=== PATIENT | male | born 2000 | race Caucasian/White ===

== ENCOUNTER 2024-02-14 13:28 | Emergency (ER) | payer SELFPAY ==
[2024-02-14 13:33] VITALS: BP 146/88; PULSE 87; RESP 16; TEMP 36.4; O2SAT 100
[2024-02-14 13:43] LABS: Glucose Point of Care 398 mg/dl (65-105)
--- NOTE | 2024-02-14 13:48 | ED.GENADULT ---
HPI - General Adult General Chief complaint: Recheck/Abnormal Lab/Rx Stated complaint: low bs Time Seen by Provider: 02/14/24 13:40 History of Present Illness HPI narrative: 23-year-old male insulin-dependent type 1 diabetic presents to the emergency room for evaluation of of dizziness and lightheadedness. Patient states that he has been without his Dexcom palm for over 2 months, and has been self medicating himself with insulin pens. Patient states that he has not been checking his blood sugars so he does not know what his blood sugars are prior to insulin dosing. Patient states he has been without supplies for over 2 months. States he was at work today felt lightheaded, let him to eat chicken and some potato chips. States that he still feels lightheaded following eating. patient is A&O x3 current Related Data Allergies Allergy/AdvReac Type Severity Reaction Status Date / Time No Known Allergies Allergy Mild Verified 02/14/24 13:37 Review of Systems Review of Systems: ROS unremarkable except noted in HPI Exam Narrative: GENERAL: Well-appearing, well-nourished, no physical limitations, and in no acute distress. HEAD: Normocephalic, atraumatic. EYES: Conjunctivae normal, PERRLA and EOMI. CHEST: Clear to auscultation. No respiratory distress. No wheezes rales or rhonchi. HEART: Regular rate and rhythm. No murmur heard. Normal peripheral pulses. ABDOMEN: Soft, nontender, nondistended, normal active bowel sounds. EXTREMITIES: Normal range of motion. No edema. No clubbing or cyanosis SKIN: Warm, dry, no rash. No noted wounds NEURO: No focal deficits. Alert and oriented x3. MAEW. CN's II-XI intact bilaterally, normal gait PSYCH: Cooperative. Normal mood and affect. Course Vital Signs Vital signs: Vital Signs Temperature 36.4 C 02/14/24 13:33 Pulse Rate 87 02/14/24 13:33 Respiratory Rate 16 02/14/24 13:33 Blood Pressure 146/88 H 02/14/24 13:33 Pulse Oximetry 100 02/14/24 13:33 Oxygen Delivery Room Air 02/14/24 13:33 Temperature 36.4 C 02/14/24 13:33 Pulse Rate 87 02/14/24 13:33 Respiratory Rate 16 02/14/24 13:33 Blood Pressure 146/88 H 02/14/24 13:33 Pulse Oximetry 100 02/14/24 13:33 Oxygen Delivery Room Air 02/14/24 13:33 Medical Decision Making Vital Signs Vital Signs: Vital Signs Temperature 36.4 C 02/14/24 13:33 Pulse Rate 87 02/14/24 13:33 Respiratory Rate 16 02/14/24 13:33 Blood Pressure 146/88 H 02/14/24 13:33 Pulse Oximetry 100 02/14/24 13:33 Oxygen Delivery Room Air 02/14/24 13:33 Temperature 36.4 C 02/14/24 13:33 Pulse Rate 87 02/14/24 13:33 Respiratory Rate 16 02/14/24 13:33 Blood Pressure 146/88 H 02/14/24 13:33 Pulse Oximetry 100 02/14/24 13:33 Oxygen Delivery Room Air 02/14/24 13:33 Lab Data 02/14/24 13:59 02/14/24 13:59 Labs: Lab Results 02/14/24 02/14/24 02/14/24 Range/Units 13:32 13:59 15:04 WBC 5.9 (4.5-10.0) K/mm3 RBC 4.75 (4.6-6.20) M/mm3 Hgb 15.1 (14.0-18.0) g/dL Hct 40.9 L (42.0-52.0) % MCV 86.1 (80-100) fl MCH 31.8 (26-34) pg MCHC 36.9 H (32-36) g/dl RDW 11.2 L (11.5-14.5) % Plt Count 207 (150-375) k/mm3 MPV 10.2 (7.4-10.4) fl Immature Gran % (Auto) 0.2 (0-0.5) % Neut % (Auto) 58.3 (45.5-73.1) % Lymph % (Auto) 33.8 (18.3-44.2) % Armstrong % (Auto) 6.2 (2.6-8.5) % Eos % (Auto) 1.0 (0-4.4) % Baso % (Auto) 0.5 (0.2-1.2) % Lymph # (Auto) 2.01 (0.9-3.2) K/mm3 Armstrong # (Auto) 0.4 (0.1-0.6) K/mm3 Eos # (Auto) 0.1 (0-0.3) K/mm3 Baso # (Auto) 0.0 (0.0-0.1) K/mm3 Abs Immat Gran (auto) 0.01 (0.00-0.031) K/mm3 Absolute Neuts (auto) 3.5 (1.3-6.7) K/mm3 Absolute Nucleated RBC 0.000 (0.0-0.012) K/mm3 Nucleated RBC % 0.0 (0.0-0.2) % Sodium 134 L (137-145) mmol/L Potassium 4.0 (3.4-5.0) mmol/L Chloride 96 L (98-107) mmol/L
[2024-02-14] MEDS: SODIUM CHLORIDE 0.9% IV 1,000 ML 999 ML IV CONT ×2 (14:01→15:15)
[2024-02-14 14:14] LABS: Basophils Percent Auto 0.5 % (0.2-1.2); Eosinophils Absolute Auto 0.1 K/mm3 (0-0.3); Hematocrit 40.9 % (42.0-52.0); Hemoglobin 15.1 g/dL (14.0-18.0); Immature Granulocyte Absolute 0.01 K/mm3 (0.00-0.031); Immature Granulocyte Percent A 0.2 % (0-0.5); Lymphocytes Absolute Auto 2.01 K/mm3 (0.9-3.2); Lymphocytes Percent Auto 33.8 % (18.3-44.2); Mean Corpuscular HGB Conc 36.9 g/dl (32-36); Mean Corpuscular Hemoglobin 31.8 pg (26-34); Mean Corpuscular Volume 86.1 fl (80-100); Mean Platelet Volume 10.2 fl (7.4-10.4); Monocytes Absolute Auto 0.4 K/mm3 (0.1-0.6); Monocytes Percent Auto 6.2 % (2.6-8.5); Neutrophils Absolute Auto 3.5 K/mm3 (1.3-6.7); Neutrophils Percent Auto 58.3 % (45.5-73.1); Platelet Count Result 207 k/mm3 (150-375); Red Blood Count 4.75 M/mm3 (4.6-6.20); Red Cell Distribution Width 11.2 % (11.5-14.5); White Blood Count 5.9 K/mm3 (4.5-10.0)
[2024-02-14 14:23] LABS: Alanine Aminotransferase 20 U/L (6-50); Albumin Level 4.8 g/dL (3.5-5.1); Alkaline Phosphatase 126 U/L (38-126); Anion Gap 11 mmol/L (4-12); Aspartate Amino Transferase 25 U/L (17-59); Bilirubin,Total 0.9 mg/dL (0.2-1.3); Blood Urea Nitrogen 14 mg/dL (9-20); Calcium 9.3 mg/dL (8.4-10.2); Carbon Dioxide 27 mmol/L (22-30); Chloride 96 mmol/L (98-107); Estimated Glomerular Filt Rate > 60; Glucose 386 mg/dL (65-110); Magnesium 1.8 mg/dL (1.6-2.3); Phosphorus 3.7 mg/dL (2.5-4.5); Sodium 134 mmol/L (137-145)
[2024-02-14 14:29] LABS: Beta-Hydroxybutyrate/Acetoacetate 2.84 mmol/L (0.02-0.27)
[2024-02-14 15:11] LABS: Hemoglobin A1C 12.7 % (<5.7)
[2024-02-14] MEDS: INSULIN HUMAN REGULAR (*BKC) 100 UNITS/ML SUB-Q (15:15)
[2024-02-14 15:16] LABS: Appearance Urine Clear (Clear); Bacteria Urine None Seen /hpf; Bilirubin Urine Negative (Negative); Blood Urine Negative (Negative); Color Urine Yellow (Yellow); Glucose Urine UA 3+ mg/dL (Negative); Ketones Urine 3+ mg/dL (Negative); Leukocyte Esterase Ur Negative LEU/UL (Negative); Nitrate Urine Negative (Negative); Non Pathogenic Casts 0-2; Protein Urine 1+ mg/dL (Negative); RBC Urine 0-2 /hpf (0-2); Specific Grav Ur > 1.045 (1.001-1.035); Squamous Epithelial Cell Urine None Seen /hpf (Few); Urobilinogen Urine 0.2 mg/dL (<2.0); WBC Urine 0-5 /hpf (0-3); pH Urine 5.5 (5.0-9.0)
[2024-02-14 15:54] LABS: Add Urine Microscopic? YES
[2024-02-14 16:01] LABS: Glucose Point of Care 350 mg/dl (65-105)
--- NOTE | 2024-02-14 16:01 | PCCCNOTE ---
Spoke with pt, pt currently without medical insurance due to moving. Pt given information and phone number for [employer]. They can assist patient with getting either Medicaid or subsidized medical benefits. Pt will need to follow up with number provided. The [facility] Development Packet which contains information regarding various services that the [facility] can provide.
[2024-02-14] MEDS: INSULIN HUMAN REGULAR (*BKC) 100 UNITS/ML IV PUSH (16:23)
[2024-02-14 17:19] LABS: Glucose Point of Care 212 mg/dl (65-105)
[2024-02-14 17:39] VITALS: BP 138/89; PULSE 84; RESP 16; O2SAT 98
== END 2024-02-14 17:42 | disposition home or self-care (01) ==
PROVIDERS: Emergency Provider Nurse Practitioner Family
DX: E10.65 Type 1 diabetes mellitus with hyperglycemia (principal); Z79.4 Long term (current) use of insulin; Z91.148 Patient's other noncompliance with medication regimen for other reason
CPT/HCPCS: 36415; 80053; 81001; 82010; 82948; 83036; 83735; 84100; 85025; 96361; 96374; 99284; J1815; J7030

== ENCOUNTER 2024-06-17 16:20 | Emergency (ER) | payer OTHER, SELFPAY ==
--- NOTE | ~2024-06-17 | CT_ITS ---
EXAMINATION: CT brain wo con DATE: 06/17/2024 16:48 INDICATION: Headache. TECHNIQUE: Computed tomography (CT) of the head was performed without intravenous contrast. The mA wa s adjusted according to patient size. Iterative reconstruction technique was employed. The dose-lengt h product was 681.00 mGy-cm. COMPARISON: None FINDINGS: There is no intracranial hemorrhage, acute infarction, or abnormal intracranial mass lesion . The ventricles are normal in size. There is mild mucosal thickening in the paranasal sinuses. The m astoid air cells are normal. The orbits are normal. IMPRESSION: 1. Normal brain. Reviewed, dictated and finalized at location A. ON STUDY TECHNICIAN IMPRESSION: 1. Normal brain.
[2024-06-17 16:28] VITALS: BP 160/88; PULSE 98; RESP 16; TEMP 36.6; O2SAT 100
--- NOTE | 2024-06-17 16:38 | ED_ITS ---
HPI - Headache General Chief Complaint: Headache <Anali Lo PA-C - Last Filed: 06/18/24 09:41> Stated Complaint: headache x 1 week <Anali Lo PA-C - Last Filed: 06/18/24 09:41> Time Seen by Provider: 06/17/24 16:38 <Anali Lo PA-C - Last Filed: 06/18/24 09:41> Focused HPI: This is a 24 year old male that presents to the ER for headaches. Reports he woke up one morning with a headache. Reports this has been ongoing over the last week. Reports associated nausea and vomiting. Reports some blurry vision. He has not taken anything for his headache today. Denies numbness or weakness. GENERAL: Well-appearing, well-nourished, and in no acute distress. HEAD: Normocephalic, atraumatic. CHEST: Clear to auscultation. ?No respiratory distress. HEART: Regular rate and rhythm.? NEURO: ?Alert and oriented x3. Patient screened in triage and initial orders placed.? ?Additional care and disposition to be based upon?diagnostic testing and treatment. <Anali Lo PA-C - Last Filed: 06/18/24 09:41> History of Present Illness HPI Narrative: 24-year-old male with no past medical history presents emergency department with his father at bedside for headache week. Patient states that it starts in his right anglican wraps around to his left anglican. He describes it as a pulsating a dull ache. He reports associated photophobia, nausea and vomited once today. He is not taking anything for his headache. He denies double vision, loss of vision, focal numbness or weakness, head injury trauma, fever, nuchal rigidity. <Magali Ernandez PA-C - Last Filed: 06/18/24 01:13> Related Data Allergies/Adverse Reactions: Allergies Allergy/AdvReac Type Severity Reaction Status Date / Time No Known Allergies Allergy Mild Verified 06/17/24 18:35 <Anali Lo PA-C - Last Filed: 06/18/24 09:41> Review of Systems Review of Systems: All systems reviewed & are unremarkable except as noted in HPI and below <Magali Ernandez PA-C - Last Filed: 06/18/24 01:13> [facility] Past Medical History Medical History: Medical History (Updated 06/18/24 @ 09:41 by Anali Lo PA-C) History of diabetes mellitus <Anali Lo PA-C - Last Filed: 06/18/24 09:41> Social History Social History: Social History (Updated 06/18/24 @ 09:40 by Anali Lo PA-C) Substance use: never <Anali Lo PA-C - Last Filed: 06/18/24 09:41> Exam Narrative: GENERAL: Well-appearing, well-nourished, and in no acute distress. HEAD: Normocephalic, atraumatic. EYES: PERRLA and EOMI. ENT: Nares clear, no rhinorrhea or epistaxis. Mucous membranes moist. NECK: Supple. No nuchal rigidity CHEST: Clear to auscultation. No respiratory distress. HEART: Regular rate and rhythm. No murmur heard. Normal peripheral pulses. ABDOMEN: Soft, nontender, nondistended, normal active bowel sounds. EXTREMITIES: Normal range of motion. No edema. SKIN: Warm, dry, no rash. NEURO: No focal deficits. Alert and oriented x3. Cranial nerves 2-12 intact. Strength 5/5 in BUE and BLE. Sensation intact throughout. Normal flhxce-yl-uhoc. No pronator drift. <Magali Ernandez PA-C - Last Filed: 06/18/24 01:13> Course Vital Signs Vital signs: Vital Signs Temperature 97.9 F 06/17/24 16:28 Pulse Rate 98 06/17/24 16:28 Respiratory Rate 16 06/17/24 16:28 Blood Pressure 160/88 H 06/17/24 16:28 Pulse Oximetry 100 06/17/24 16:28 Oxygen Delivery Room Air 06/17/24 16:28 Temperature 97.9 F 06/17/24 16:28 Pulse Rate 98 06/17/24 16:28 Respiratory Rate 16 06/17/24 16:28 Blood Pressure 160/88 H 06/17/24 16:28 Pulse Oximetry 100 06/17/24 16:28 Oxygen Delivery Room Air 06/17/24 16:28 <HAL Calderon Last Filed: 06/18/24 09:41> Vital Signs Temperature 97.9 F 06/17/24 16:28 Pulse Rate 98 06/17/24 16:28 Respiratory Rate 16 06/17/24 16:28 Blood Pressure 160/88 H 06/17/24 16:28 Pulse Oximetry 100 06/17/24 16:28 Oxygen Delivery Room Air 06/17/24 16:28 Temperature 97.9 F 06/17/24 16:28 Pulse Rate 98 06/17/24 16:28 Respiratory Rate 16 06/17/24 16:28 Blood Pressure 160/88 H 06/17/24 16:28 Pulse Oximetry 100 06/17/24 16:28 Oxygen Delivery Room Air 06/17/24 16:28 <Magali Ernandez PA-C - Last Filed: 06/18/24 01:13> MDM - Headache MDM Narrative Medical decision making narrative: 24-year-old male presents emergency department with father at bedside for headache for 1 week. Vitals with blood pressure 160/88. He is afebrile nontoxic appearing. He is neurovascularly intact without focal deficits. No evidence of meningismus. CT brain obtained in triage shows no acute intracranial findings. Patient received a headache cocktail and IV fluids. When I went to go reevaluate the patient, he was not in the exam room. Per nursing staff the patient had eloped out of the department after asking to go to the bathroom. Security was able to find the patient in the parking lot and patient's IV was removed. He was seen ambulating with a steady gait. <Magali Ernandez PA-C - Last Filed: 06/18/24 01:13> Critical Care Time Critical Care Time Critical Care Time: No <HAL Calderon Last Filed: 06/18/24 09:41> Discharge Plan Discharge Clinical Impression: Headache <HAL Calderon Last Filed: 06/18/24 09:41> Patient Disposition: Elopement After Seen by Prov <HAL Calderon Last Filed: 06/18/24 09:41> Condition: Stable <HAL Calderon Filed: 06/18/24 09:41> Follow-up/Referrals: UNKNOWN,DOCTOR [Primary Care Provider] - <Anali Lo PA-C - Last Filed: 06/18/24 09:41>
[2024-06-17] MEDS: ACETAMINOPHEN 500 MG TABLET 1000 MG PO (16:57)
[2024-06-17] MEDS: SODIUM CHLORIDE 0.9% IV 1,000 ML 999 ML IV CONT (18:36)
[2024-06-17] MEDS: diphenhydrAMINE HCl INJ 50 MG/ML VIAL 25 MG IV PUSH (18:36)
[2024-06-17] MEDS: KETOROLAC 15 MG/ML VIAL (*BKC) IV PUSH (18:37)
[2024-06-17] MEDS: PROCHLORPERAZINE EDISYLATE 10 MG/2 ML VIAL IV PUSH (18:37)
--- NOTE | 2024-06-17 19:03 | PC.NURSE ---
This RN assisted patient to the restroom. While patient was going to the bathroom, patient ran out the door into the parking lot. PAtients IV remained in. Security ran after patient and brought him back to [facility] to remove IV. Patient eloped and provider notified.
== END 2024-06-17 19:08 | disposition left against medical advice (07) ==
PROVIDERS: Emergency Provider Physician Assistant
DX: R51.9 Headache, unspecified (principal); E11.9 Type 2 diabetes mellitus without complications
CPT/HCPCS: 70450; 96361; 96374; 96375; 99284; A9270; J0780; J1200; J1885; J7030

== ENCOUNTER 2024-09-19 18:46 | Emergency (ER) | payer OTHER, SELFPAY ==
--- OUTSIDE RECORDS SUMMARY | 2024-09-19 18:50 | XMS_ITS | Continuity of Care Document ---
Author Organization [facility] Address [address] [place] [address] [place] [address] Phone Care Team Providers Care Vacuum Cleaner Mechanic Name Role Phone Warner Acevedo MD Unavailable Unavailable Allergies, Adverse Reactions, Alerts Substance Reaction Status Criticality POTASSIUM CLAVULANATE Skin irritationHives / Skin Rash Active No Information AMOXICILLIN TRIHYDRATE Skin irritation Active No Information Medications Medication Instructions Dosage Effective Dates (start - stop) Status Comments Humalog KwikPen (U-100) Insulin 100 unit/mL subcutaneous inject by subcutaneous route per prescriber's instructions. Insulin dosing requires individualization. 0.00 - Active take 10 units TID before meal and per sliding scale, max 50 units/24 hours Lantus Solostar U-100 Insulin 100 unit/mL (3 mL) subcutaneous pen inject by subcutaneous route as per insulin protocol 0.00 - Active 60 units SC daily Procedures Procedure Date PREV VISIT, EST, AGE 18-39 OFFICE/OUTPATIENT VISIT, [facility] Advance Directives Directive Yes / No Effective Date File Name No Information Encounters Encounter Description Practice Location Reason(s) For Visit Diagnoses Date Provider Providers Copied on Encounter PREV VISIT, EST, AGE 18-39 [facility], [address] [place], [id number], [place] tel:[phone] [facility] Medicine physical (chief complaint) Encounter for general adult medical examination without abnormal findings Curtis Hylton. [email or web address], [id number] , [place]. tel:[phone] [facility], [address] [place], [id number], [place] tel:[phone] [facility] No Information Curtis Hylton. [address], [place], [place], [id number] , [place]. tel:[phone] OFFICE/OUTPAT IENT VISIT, [facility], [place], [address], [place], [place], [id number], tel:[phone] [facility] DM (chief complaint) Type I DM without complication Curtis Hylton. [address], [place], [place], [id number] , [place]. tel:[phone] Family History Family Member Type Diagnosis Age At Onset Mother Problem personality disorder Brother Problem Alive and well Father Problem drug dependency Payers Payer name Insurance type Covered republican ID Authoriza tion(s) No Information Social History Type Description Quantity Date Captured Comments Alcohol Use Details No Caffeine Use Details Unknown Tobacco Use Status Smoker Smoking Status Current some day smoker 024 Sex Male Vital Signs Date / Time: Height Weight BMI Pulse Rate Blood Pressure Temperature Respiratory Rate Body Surface Area Head Circumference BMI percentile Pulse Ox Inhaled Ox 3:01 PM 72.00 in 213.40 lbs 28.9 4 kg/m eter (2) 88 /min 130/88 mm[Hg] 98.0 F 16 /min Chief Complaint And Reason For Visit From encounter dated '06/23/2024 14:54'. physical (chief complaint). Description: Pt needs annual physical Pt has type I DM Pt has insulin pump but he has ot been using the pump since he does not have endo. he uses lantus and humalog. His glucose is around 150-200 on average Pt also has history of HTN. he was on bp med but the previous PCP stopped BP med one year ago for unknown reason he notices that his bp has been high recently around 160/90. He also notices some headache as well. he denies any neuropathy or chest pain. Pt has devin with endo November of 2024. Pt denies any vision change Plan Of Treatment Date Type Action Status Referral Ordered: Endocrinology, Diabetes and Metabolism (related to Encounter for general adult medical examination without abnormal findings) ordered Referral Ordered: Referrals: Endocrinology, Diabetes and Metabolism. Evaluate and treat ordered Referral Ordered: Rob Villanueva -[facility] : Internal Medicine (related to Type I DM without complication) ordered Referral Referred To: Rob Villanueva [address], [phone] Ordered: Referrals: [facility] : Internal Medicine. Rob Villanueva. Evaluate and treat ordered History Of Present Illness Encounter Date Complaint History Of Prese nt Illness physical Pt needs annual physical Pt has type I DM Pt has insulin pump but he has ot been using the pump since he does not have endo. he uses lantus and humalog. His glucose is around 150-200 on average Pt also has history of HTN. he was on bp med but the previous PCP stopped BP med one year ago for unknown reason he notices that his bp has been high recently around 160/90. He also notices some headache as well. he denies any neuropathy or chest pain. Pt has devin with endo November of 2024. Pt denies any vision change DM Pt has type I DM . Pt just moved back from [place] last month and he was seeing specialist back in [place] but he is about to run out of insulin. He uses humalog 10 units before meal and also sliding scale and lantus 60 units nightly. His glucose is around 200 and his A1c is around 12. pt does have insulin pump and he needs to see endo to reactivate the pump. Pt denies any other complaints. He denies any neuropathy Instructions Date Instruction Additional Infor mation No Information Assessments Type Assessment Date assessment Encounter for genera l adult medical examination without abnormal findings Mental Status Date Cognitive Assessment Orientation - Hooper ed to time, place, person, situation.
--- OUTSIDE RECORDS SUMMARY | 2024-09-19 18:50 | XMS_ITS | Referral Summary ---
Author Organization [facility] Address [address] [place] [address] [place] [address] Care Team Providers Care Hatchery Helper Name Role Phone Unavailable Primary Care Provider Unavailabl e Source Comments [facility],non-owned Affiliates and Associated Physician Practices is amultiple site organization consisting of ambulatory clinics and hospital sitesin [place], [place], [place] and [place]. This disclosure is being madepursuant to the Care Everywhere program and may not contain all information available regarding this patient. Last updated 18.[facility] Allergies Active Allergy Reactions Criticality Noted Date Comments Penicillins Itching 03/10/2021 Medications * Be aware that medications may not be up to date on this document. Alwaysverify current medications with the patient. Medication Sig Dispensed Refills Start Date End Date Status Insulin Syringes, Disposable, U-100 0.5 ML MISC Use 1 Each as needed 100 Each 06/24/2019 Active Continuous Blood Gluc Turning Machine Operator Helper (DEXCOM G6 CHAIR LIFT OPERATOR) WARREN Use 1 Each once daily 1 device 08/19/2019 Active Additional Information Patient not taking.Reported on 03/10/2021 insulin pen needle (BD UF III) 31G X 8 MM needle 1 Each 4 times daily 200 Each 2 05/26/2020 Active glucagon (GLUCAGON EMERGENCY) injection Inject 1 mg into muscle as needed 1 kit 05/26/2020 Active Continuous Blood Gluc Transmit (DEXCOM G6 TRANSMITTER) MISCIndications:Unc ontrolled type 1 diabetes mellitus with hyperglycemia (HCC) Use 1 Each Every 90 days 1 Each 4 11/16/2020 Active Additional Information Patient not taking.Reported on 03/10/2021 Continuous Blood Gluc Sensor (DEXCOM G6 SENSOR) MISC Inject 1 Each subcutaneously every 10 days 9 Each 4 11/16/2020 Active Additional Information Patient not taking.Reported on 03/10/2021 Glucagon, rDNA, (GLUCAGON EMERGENCY) 1 MG KIT 1 Each by Injection route as needed 2 kit 11/16/2020 Active insulin glargine (LANTUS) pen Inject 22 (twenty two) Units subcutaneously at bedtime 5 Pen 4 03/10/2021 Active Acetone, Urine, Test (KETONE TEST) STRP Use 1 Each as instructed as needed 25 strip 2 03/10/2021 Active insulin lispro (HUMALOG) 100 UNIT/ML vialIndications:Unc ontrolled type 1 diabetes mellitus with hyperglycemia (HCC) TAKE 60 UNITS PER DAY PER PUMP 20 mL 09/01/2021 Active Active Problems Problem Noted Date Diagnosed Date Uncontrolled type 1 diabetes mellitus with hyper glycemia 06/24/2019 Immunizations Name Administration Dates Next Due DTaP VACCINE IM (6wk-6yrs) 03/27/2007,,01/06/2002,10/21,2001 HEP A PEDS 2 DOSE 08/25/2013,02/21/2013 HIB Hep B 02/23/2003,2001,2001 Human Papilloma Virus Meseret valent Vaccine 08/25/2013,04/25/2013,02/21/2013 INFLUENZA VACCINE 06/09/2019,06/20/2004 INFLUENZA VACCINE, QUADR. (F LUZONE; FLULAVAL; FLUARIX; AFLURIA QUADRIVALENT; 6MO+), 0.5 ML (IIV4) 05/21/2018,05/31/2017,05/26/2016 TAMERA VACCINE QUAD LAIV4 PF NASAL 05/28/2015 MENINGOCOCCAL CONJUGATE (MCV4P) 05/31/2017 MENINGOCOCCAL MCV4O 02/21/2013 MMR 03/27/2007,05/26/2002 PNEUMOCOCCAL PCV7 CONJ, PEDS 01/06/2002,10/22/19 02 POLIO IPV 03/27/2007, 2,2001,07/26 TDAP (7yrs+) 02/21/2013 VARICELLA 03/27/2007,05/26/2002 iNFLUENZA VACCINE, RECOM-ROSENBERG, QUADR. (FLUBLOCK QUADRIVALENT; 18Y+) (RIV4) 05/26/2020 Social History Tobacco Use Types Packs/Day Years Used Date Smoking Tobacco: Never Smokeless Tobacco: Current Chew Alcohol Use Standard Drinks/Week Comments Yes 0 (1 standard drink = 0.6 oz pur e alcohol) Sex and Gender Information Value Date Recorded Sex Assigned at Not on file Gender Identity Not on file Sexual Orientation Not on file Last Filed Vital Signs Vital Sign Reading Time Taken Comments Blood Pressure 140/70 03/10/2021 3:05 PM CDT Pulse 87 03/10/2021 3:05 PM CDT Temperature 35.9 C (96.7 F) 03/10/2021 3:05 PM CDT Respiratory Rate - - Oxygen Saturation 99% 03/10/2021 3:05 PM CDT Inhaled Oxygen Concentration - - Weight 86.2 kg (190 lb) 03/10/2021 3:05 PM CDT Height 188 cm (6' 2 ) 03/10/2021 3:05 PM CDT Body Mass Index 24.39 03/10/2021 3:05 PM CDT Plan of Treatment Not on file Procedures Procedure Name Priority Date/Time Associated Diagnosis Comments HEMOGLOBIN A1C - POINT OF CARE (AMB) [facility] Routine 03/10/2021 3:12 PM CDT Uncontrolled type 1 diabetes mellitus with hyperglycemia (HCC) from Last 3 Months or Most Recently Relevant to Health Maintenance Results * HEMOGLOBIN A1C - POINT OF CARE (AMB) [facility] (03/10/2021 3:12 PM CDT) Hemoglobin A1c POCT 13.5% % BLOOD SPECIMEN / Unknown 03/10/2021 3:12 PM CDT Jackeline Vitale [facility] - POINT O F CARE ORDERABLES from Last 3 Months or Most Recently Relevant to Health Maintenance
--- OUTSIDE RECORDS SUMMARY | 2024-09-19 18:50 | XMS_ITS | Continuity of Care Document ---
Author Organization [facility] Address [address] [place] [address] Phone Care Team Providers Care Field Court Researcher Name Role Phone Jignesh PT, GLENDAT, [place] Unavailable Unavailable Procedures Procedure Date PT Evaluation Moderate Complexity Therapeutic Activities Neuromuscular Re-Ed Therapeutic Exercise Advance Directives Directive Yes / No Effective Date File Name No Information Encounters Encounter Description Practice Location Reason(s) For Visit Diagnoses Date Provider Providers Copied on Encounter [facility], [address], [place], [place], [id number], tel:[phone] [place] No Information 4 Jignesh Ledezma. . [facility], [address], [place], [place], [address], [place] tel:[phone] [place] No Information 4 Spencer Peres. . Referring Provider: Access Direct. Family History Family Member Type Diagnosis Age At Onset No Information Payers Payer name Insurance type Covered green party ID Authoriza tijose maria(s) [employer] [place] 00 Social History Type Description Quantity Date Captured Comments Sex Male Smoking Status No Information Chief Complaint And Reason For Visit No Information Reason For Referral Reason For Referral No Information History Of Present Illness Encounter Date Complaint History Of Prese nt Illness No Information Functional Status Date Functional Assessmen t No Information Instructions Date Instruction Additional Infor mation No Information Assessments Type Assessment Date No Information Patient Care Teams Name Effective Dates (start - stop) Status Members No Information
--- OUTSIDE RECORDS SUMMARY | 2024-09-19 18:50 | XMS_ITS | Clinical Summary ---
Author Organization [facility] Address [address] [place] [address] [place] [address] Care Team Providers Care Kettle Skimmer Name Role Phone Unavailable Primary Care Provider Unavailabl e Source Comments [facility],non-owned Affiliates and Associated Physician Practices is amultiple site organization consisting of ambulatory clinics and hospital sitesin [place], [place], [place] and [place]. This disclosure is being madepursuant to the Care Everywhere program and may not contain all information available regarding this patient. Last updated 18.[employer] [facility] Allergies Active Allergy Reactions Criticality Noted Date Comments Penicillins Itching 03/10/2021 Medications * Be aware that medications may not be up to date on this document. Alwaysverify current medications with the patient. Medication Sig Dispensed Refills Start Date End Date Status Insulin Syringes, Disposable, U-100 0.5 ML MISC Use 1 Each as needed 100 Each 06/24/2019 Active Continuous Blood Gluc Vehicle And Equipment Cleaner (DEXCOM G6 TRUCK CRANE OPERATOR) WARREN Use 1 Each once daily [...] RECOM-ROSENBERG, QUADR. (FLUBLOCK QUADRIVALENT; 18Y+) (RIV4) 05/26/2020 Family History Medical History Relation Name Comments Seizures Mother Seizures Sister Relation Name Status Comments Brother Alive Father Alive Mother Alive Sister Alive Social History Tobacco Use Types Packs/Day Years [...] 03/10/2021 3:05 PM CDT Plan of Treatment Health Maintenance Due Date Last Done Comments PNEUMOCOCCAL VACCINE (1 of 1 - PPSV23) 2007 01/06/2002, 2001 HIV SCREENING 2016 MENINGOCOCCAL (Group B) VACC INE (1 of 2 - Standard) 2017 HEPATITIS C SCREENING 05/12/2019 DIABETES-SERUM CREATININE 2019 DIABETES RETINOPATHY SCREENING 06/24/2019 DIABETES-FOOT EXAM WITH MONOFILAMENT 05/26/2021 05/26/2020, 06/24/2019 DIABETES-HGB A1C 09/10/2021 03/10/2021, , 08/25/2020, Additional history exists DTAP/TDAP/TD VACCINES (7 - T d or Tdap) 02/21/2023 02/21/2013, 03/27/2007, 02/23/2003, Additional history exists COVID-19 VACCINE (2023-2 5 season) 2024 INFLUENZA VACCINE (#1) 2024 0, 06/09/2019, 05/21/2018, Additional history exists DEPRESSION SCREENING 08/06/2024 DIABETES - URINE PROTEIN SCREENING 08/06/2024 ZOSTER VACCINE (1 of 2) 2051 HEPATITIS B VACCINE Completed 02/23/2003, 2001, 2001 HIB VACCINE Completed 02/23/2003, 10/04, 2001 HPV VACCINE Completed 08/25/2013, 04/07, 02/21/2013 MENINGOCOCCAL VACCINE Completed 05/31/2017, 013 Procedures Procedure Name Priority Date/Time Associated Diagnosis [...] Unknown 03/10/2021 3:12 PM CDT Jackeline Vitale EXPENSE CLERK-CHILD WELFARE CONSULTANT LAB - POINT O F CARE ORDERABLES from Last 3 Months or Most Recently Relevant to Health Maintenance
--- OUTSIDE RECORDS SUMMARY | 2024-09-19 18:50 | XMS_ITS | Patient Health Summary ---
Author Organization [facility] [employer] Address [address] [place] [address] Care Team Providers Care Power Electronics Research Engineer Name Role Phone Unavailable Primary Care Provider Unavailabl e Note from [facility],non-owned Affiliates and Associated Physician Practices is amultiple site organization consisting of ambulatory clinics and hospital sitesin [place], [place], [place] and [place]. This disclosure is being madepursuant to the Care Everywhere program and may not contain all information available regarding this patient. Last updated 18.[facility] [employer] Allergies * Penicillins(Itching) Medications * Be aware that medications may not be up to date on this document. Alwaysverify current medications with the patient. * Insulin Syringes, Disposable, U-100 0.5 ML MISC(Started 06/24/2019) Use 1 Each as needed * Continuous Blood Gluc Security Compliance Specialist (DEXCOM G6 ORACLE TECHNICAL DEVELOPER) WARREN(Started 08/19/2019) Use 1 Each once daily * insulin pen needle (BD UF III) 31G X 8 MM needle(Started 05/26/2020) 1 Each 4 times daily 2 refills by 05/26/2021 * glucagon (GLUCAGON EMERGENCY) injection(Started 05/26/2020) Inject 1 mg into muscle as needed * Continuous Blood Gluc Transmit (DEXCOM G6 TRANSMITTER) MISC(Started 11/16/2020) Use 1 Each Every 90 days 4 refills by 11/16/2021 * Continuous Blood Gluc Sensor (DEXCOM G6 SENSOR) MISC(Started 11/16/2020) Inject 1 Each subcutaneously every 10 days 4 refills by 11/16/2021 * Glucagon, rDNA, (GLUCAGON EMERGENCY) 1 MG KIT(Started 11/16/2020) 1 Each by Injection route as needed * insulin glargine (LANTUS) pen(Started 03/10/2021) Inject 22 (twenty two) Units subcutaneously at bedtime 4 refills by 03/10/2022 * Acetone, Urine, Test (KETONE TEST) STRP(Started 03/10/2021) Use 1 Each as instructed as needed 2 refills by 03/10/2022 * insulin lispro (HUMALOG) 100 UNIT/ML vial(Started 09/01/2021) TAKE 60 UNITS PER DAY PER PUMP Active Problems Problem Noted Date Diagnosed Date Uncontrolled type 1 diabetes mellitus with hyper glycemia 06/24/2019 Immunizations * DTaP VACCINE IM (6wk-6yrs)(Given 03/27/2007, 02/23/2003, 01/06/2002, 2001, 2001) * HEP A PEDS 2 DOSE(Given 08/25/2013, 02/21/2013) * HIB Hep B(Given 02/23/2003, 2001, 2001) * Human Papilloma Virus Quadrivalent Vaccine(Given 08/25/2013, 04/25/2013, 02/21/2013) * INFLUENZA VACCINE(Given 06/09/2019, 06/20/2004) * INFLUENZA VACCINE, QUADR. (FLUZONE; FLULAVAL; FLUARIX; AFLURIA QUADRIVALENT; 6MO+), 0.5 ML (IIV4)(Given 05/21/2018, 05/31/2017, 05/26/2016) * TAMERA VACCINE QUAD LAIV4 PF NASAL(Given 05/28/2015) * MENINGOCOCCAL CONJUGATE (MCV4P)(Given 05/31/2017) * MENINGOCOCCAL MCV4O(Given 02/21/2013) * MMR(Given 03/27/2007, 05/26/2002) * PNEUMOCOCCAL PCV7 CONJ, PEDS(Given 01/06/2002, 2001) * POLIO IPV(Given 03/27/2007, 05/26/2002, 2001, 2001) * TDAP (7yrs+)(Given 02/21/2013) * VARICELLA(Given 03/27/2007, 05/26/2002) * iNFLUENZA VACCINE, RECOM-ROSENBERG, QUADR. (FLUBLOCK QUADRIVALENT; Y+) (RIV4)(Given 05/26/2020) Social History Tobacco Use Types Packs/Day Years [...] Mass Index 24.39 03/10/2021 3:05 PM CDT Procedures * HEMOGLOBIN A1C - POINT OF CARE (AMB) [facility](Performed 03/10/2021) Performed for Uncontrolled type 1 diabetes mellitus with hyperglycemia (HCC) * HEMOGLOBIN A1C - POINT OF CARE (AMB) [facility](Performed 11/16/2020) Performed for Uncontrolled type 1 diabetes mellitus with hyperglycemia (HCC) * [place] GLUC MONITOR, CONT, PHYS I&R(Performed 08/25/2020) Performed for Uncontrolled type 1 diabetes mellitus with hyperglycemia (HCC) * HEMOGLOBIN A1C - POINT OF CARE (AMB) [facility](Performed 08/25/2020) Performed for Uncontrolled type 1 diabetes mellitus with hyperglycemia (HCC) * HEMOGLOBIN A1C - POINT OF CARE (AMB) [facility](Performed 05/26/2020) Performed for Uncontrolled type 1 diabetes mellitus with hyperglycemia (HCC) * HEMOGLOBIN A1C - POINT OF CARE (AMB) [facility](Performed 06/24/2019) Performed for Screening for diabetes mellitus (DM) Results * HEMOGLOBIN A1C - POINT OF CARE (AMB) [facility] (03/10/2021 3:12 PM CDT) Only the most recent of5 resultswithin the time period is included. Hemoglobin A1c POCT 13.5% % BLOOD SPECIMEN / Unknown 03/10/2021 3:12 PM CDT Jackeline GARCIA LAB - POINT O F CARE ORDERABLES * OH GLUC MONITOR, CONT, PHYS I&R (08/25/2020 8:38 AM CLOTH WASHER) Narrative Jackeline Vitale APRN-CNP - 08/25/2020 8:38 AM CLOTH WASHER Jackeline Vitale APRN-CNP 08/25/2020 8:47 AM Dexcom cgm G6 downloaded in office. Report reviewed with patient. See progress notes for settings/results noted/recommendations. ( Download will be scan into media. ) Jackeline GARCIA PROCEDURE/MIN OR SURGICAL ORDERABLES
[2024-09-19 18:52] VITALS: BP 147/115; PULSE 101; RESP 20; TEMP 36.7; O2SAT 96
--- NOTE | 2024-09-19 18:59 | ED.NAVMDI ---
HPI - Nausea/Vomiting/Diarrhea General Chief complaint: Nausea/Vomiting/Diarrhea Stated complaint: N/V Time Seen by Provider: 09/19/24 18:49 Source: patient Mode of arrival: EMS Limitations: no limitations History of Present Illness HPI Narrative: 24 years old white male with history of type 1 diabetes came to the ED by ambulance from home complaining of nausea and vomiting body aches, coughing for the last 4 days. Patient is telling me that he been vomiting once every 2 hours. Currently patient feeling very thirsty . Questionable fever at home. Patient did not take any of his home medicine for the last 4 days because of the vomiting Related Data Home Medications ?Medication ?Instructions ?Recorded ?Confirmed ?Last Taken ?Type insulin glargine 100 unit/mL (3 60 unit subcut QPM 09/19/24 Unknown History mL) subcutaneous pen (Lantus Solostar U-100 Insulin) insulin lispro 100 unit/mL 10 unit subcut ACINSULIN 09/19/24 Unknown History subcutaneous pen Allergies Allergy/AdvReac Type Severity Reaction Status Date / Time No Known Allergies Allergy Mild Verified 09/19/24 19:09 Review of Systems Review of Systems: All systems reviewed & are unremarkable except as noted in HPI and below PMFSH Past Medical History Medical History History of diabetes mellitus Social History Social History Substance use: never Exam Narrative: General appearance: Well-developed, well-nourished Skin: Normal color Head: Normocephalic, nontraumatic Eyes: Clear conjunctiva ENT: Oropharynx normal, ears normal, nose normal Neck: Supple, nontender Chest and respiratory: Airway patent, no respiratory distress, no accessory muscle use Heart: Regular rate/rhythm Abdomen: Soft, nontender, no organomegaly, quiet bowel sounds Vascular: Normal peripheral pulses, normal capillary refill. Musculoskeletal: Normal range of motion, nontender back Neurologic: Alert and oriented ?3, HOSPICE EDUCATOR is normal as tested, no gross motor deficit Course Consultations Consultation #1: DR WILDER Date: 09/19/24 Time: 20:46 Vital Signs Vital signs: Vital Signs Temperature 36.7 C 09/19/24 18:52 Pulse Rate 101 H 09/19/24 18:52 Respiratory Rate 20 09/19/24 18:52 Blood Pressure 147/115 H 09/19/24 18:52 Pulse Oximetry 96 09/19/24 18:52 Oxygen Delivery Room Air 09/19/24 18:52 Temperature 36.7 C 09/19/24 18:52 Pulse Rate 101 H 09/19/24 18:52 Respiratory Rate 20 09/19/24 18:52 Blood Pressure 147/115 H 09/19/24 18:52 Pulse Oximetry 96 09/19/24 18:52 Oxygen Delivery Room Air 09/19/24 18:52 MDM - Nausea/Vomiting/Diarrhea MDM Narrative Medical decision making narrative: patient presents with vomiting for the last 4 days history of type 1 diabetes Vital signs showing blood pressure 147/115, heart rate 101 otherwise within normal limit Physical examination showing severely ill patient, with dry heaves and diaphoretic Differential diagnosis include DKA, upper respiratory viral infection, gastroenteritis, electrolyte imbalance, dehydration Blood workup today includes CBC, CMP, phosphorus, magnesium, beta hydroxybutyrate showed sodium 133, carbon dioxide 10, anion gap 28, creatinine 1.3, blood glucose 391, magnesium 1.5, Urinalysis showed Respiratory panel showed positive for influenza A Venous blood gas showed pH of 7.16 Diagnosis DKA type 1 diabetes Influenza a Transferred to [facility] discussed with Dr. Wilder Differential Diagnosis Differential diagnosis: Likely gastroenteritis, dehydration and other ( DKA, electrolyte imbalance, respiratory viral infection) Medical Records Attestation: I reviewed the patient's medical records. Lab Data Attestation: I reviewed the patient's lab results. 09/19/24 19:03 09/19/24 19:03 Labs: Lab Results 09/19/24 09/19/24 09/19/24 Range/Units 19:03 19:13 20:30 WBC 5.5 (4.8-10.8) K/mm3 RBC 5.78 (4.70-6.10) M/mm3 Hgb 17.3 (14.0-18.0) g/dL Hct 50.5 (40.0-54.0) % MCV 87.4 (78.0-102.0) fL MCH 29.9 (27.0-31.0) pg MCHC 34.3 (32-36) g/dL RDW 11.5 L (11.6-14.4) % Plt Count 209 (150-420) K/mm3 MPV 10.0 (8.7-11.0) fl Immature Gran % (Auto) 0.2 H (0.0-0.0) % Neut % (Auto) 75.4 H (50.0-70.0) % Lymph % (Auto) 15.3 L (18.0-42.0) % Gladwin % (Auto) 8.7 (2.0-11.0) % Eos % (Auto) 0.2 L (1.0-6.0) % Baso % (Auto) 0.2 (0.0-1.0) % Lymph # (Auto) 0.85 L (1.10-4.50) K/mm3 Gladwin # (Auto) 0.48 (0.10-0.90) K/mm3 Eos # (Auto) 0.01 L (0.02-0.50) K/mm3 Baso # (Auto) 0.01 (0.00-0.10) K/mm3 Abs Immat Gran (auto) 0.01 H (0.00-0.00) K/mm3 Absolute Neuts (auto) 4.18 (1.70-7.20) K/mm3 Absolute Nucleated RBC 0.00 (0.00-0.00) K/mm3 Nucleated RBC % 0.0 (0-0.0) % Sodium 133 L (136-145) mmol/L Potassium 4.3 (3.5-5.1) mmol/L Chloride 95 L (98-108) mmol/L Carbon Dioxide 10 L (21-32) mmol/L Anion Gap 28 H (4-12) mmol/L BUN 14 (7-18) mg/dL Creatinine 1.38 H (0.70-1.30) mg/dL Estim Creat Clear Calc 84 ml/min Estimated GFR > 60 (59 - ) Glucose 391 H (70-99) mg/dL POC Capillary Glucose 392 H (65-105) mg/dl Calculated Osmolality 292 (285-295) mOsm/kg Calcium 8.8 (8.5-10.1) mg/dL Phosphorus 3.9 (2.6-4.7) mg/dL Magnesium 1.5 L (1.8-2.4) mg/dL Total Bilirubin 0.4 (0.00-1.00) mg/dL AST 17 (15-37) U/L ALT 28 (16-63) U/L Alkaline Phosphatase 121 H (46-116) U/L Total Protein 8.0 (6.4-8.2) g/dL Albumin 3.8 (3.4-5.0) g/dL Urine Color Light yellow (Yellow) Urine Appearance Clear (Clear) Urine pH 5.5 (5.0-8.0) Ur Specific Hercules >= 1.030 H (1.010-1.020) Urine Protein 3+ H (Negative) Urine Glucose (UA) 2+ H (Negative) Urine Ketones 3+ H (Negative) Ur Blood (Man) Trace-intact H (Negative) Urine Nitrate Negative (Negative) Urine Bilirubin 1+ H (Negative) Urine Urobilinogen 0.2 (0.2-1.0) mg/dL Leukocyte Esterase Rfl Negative (Negative) DAVID/UL Urine RBC 0-2 (0-2) /hpf Urine WBC 0-3 (0-3) /hpf Ur Squamous Epith Cells Rare (Few) /hpf Urine Bacteria Trace (None) /hpf Influenza A (RT-PCR) Positive A (Negative) Influenza B (RT-PCR) Negative (Negative) RSV (RT-PCR) Negative (Negative) SARS-CoV-2 RNA (RT-PCR) Negative (Negative) 09/19/24 09/19/24 Range/Units 21:01 21:56 WBC (4.8-10.8) K/mm3 RBC (4.70-6.10) M/mm3 Hgb (14.0-18.0) g/dL Hct (40.0-54.0) % MCV (78.0-102.0) fL MCH (27.0-31.0) pg MCHC (32-36) g/dL RDW (11.6-14.4) % Plt Count (150-420) K/mm3 MPV (8.7-11.0) fl Immature Gran % (Auto) (0.0-0.0) % Neut % (Auto) (50.0-70.0) % Lymph % (Auto) (18.0-42.0) % Gladwin % (Auto) (2.0-11.0) % Eos % (Auto) (1.0-6.0) % Baso % (Auto) (0.0-1.0) % Lymph # (Auto) (1.10-4.50) K/mm3 Gladwin # (Auto) (0.10-0.90) K/mm3 Eos # (Auto) (0.02-0.50) K/mm3 Baso # (Auto) (0.00-0.10) K/mm3 Abs Immat Gran (auto) (0.00-0.00) K/mm3 Absolute Neuts (auto) (1.70-7.20) K/mm3 Absolute Nucleated RBC (0.00-0.00) K/mm3 Nucleated RBC % (0-0.0) % Sodium (136-145) mmol/L Potassium (3.5-5.1) mmol/L Chloride (98-108) mmol/L Carbon Dioxide (21-32) mmol/L Anion Gap (4-12) mmol/L BUN (7-18) mg/dL Creatinine (0.70-1.30) mg/dL Estim Creat Clear Calc ml/min Estimated GFR (59 - ) Glucose (70-99) mg/dL POC Capillary Glucose 289 H 234 H (65-105) mg/dl Calculated Osmolality (285-295) mOsm/kg Calcium (8.5-10.1) mg/dL Phosphorus (2.6-4.7) mg/dL Magnesium (1.8-2.4) mg/dL Total Bilirubin (0.00-1.00) mg/dL AST (15-37) U/L ALT (16-63) U/L Alkaline Phosphatase (46-116) U/L Total Protein (6.4-8.2) g/dL Albumin (3.4-5.0) g/dL Urine Color (Yellow) Urine Appearance (Clear) Urine pH (5.0-8.0) Ur Specific Hercules (1.010-1.020) Urine Protein (Negative) Urine Glucose (UA) (Negative) Urine Ketones (Negative) Ur Blood (Man) (Negative) Urine Nitrate (Negative) Urine Bilirubin (Negative) Urine Urobilinogen (0.2-1.0) mg/dL Leukocyte Esterase Rfl (Negative) DAVID/UL Urine RBC (0-2) /hpf Urine WBC (0-3) /hpf Ur Squamous Epith Cells (Few) /hpf Urine Bacteria (None) /hpf Influenza A (RT-PCR) (Negative) Influenza B (RT-PCR) (Negative) RSV (RT-PCR) (Negative) SARS-CoV-2 RNA (RT-PCR) (Negative) ABG Data ABG results: 09/19/24 19:03 VBG pH 7.16 L VBG pCO2 21.4 L* VBG pO2 63.2 H VBG HCO3 7.4 L O2 Delivery Device Room air O2 Liters/Min 0.0 Critical Care Time Critical Care Time Critical Care Time: Yes Total Critical Care Time: 30 Discharge Plan Discharge Clinical Impression: DKA, type 1, Dehydration, Influenza A Patient Disposition: Acute Care Hospital Condition: Guarded Prognosis Instructions: Dehydration (ED), Diabetic Ketoacidosis (DC), Influenza (DC) Additional Instructions: TRANSFER TO [facility] Patient Language: Guamanian Prescriptions: No Action insulin glargine [Lantus Solostar U-100 Insulin] 100 unit/mL (3 mL) insulin pen 60 unit SUBCUT QPM insulin lispro 100 unit/mL insulin pen 10 unit SUBCUT ACINSULIN Follow-up/Referrals: UNKNOWN,DOCTOR [Non-Staff] -
[2024-09-19 19:07] LABS: Basophils Absolute Auto 0.01 K/mm3 (0.00-0.10); Basophils Percent Auto 0.2 % (0.0-1.0); Eosinophils Absolute Auto 0.01 K/mm3 (0.02-0.50); Eosinophils Percent Auto 0.2 % (1.0-6.0); HCO3 VBG 7.4 mEq/l (24.0-30.0); Hematocrit 50.5 % (40.0-54.0); Hemoglobin 17.3 g/dL (14.0-18.0); Immature Granulocyte Absolute 0.01 K/mm3 (0.00-0.00); Immature Granulocyte Percent A 0.2 % (0.0-0.0); Lymphocytes Absolute Auto 0.85 K/mm3 (1.10-4.50); Lymphocytes Percent Auto 15.3 % (18.0-42.0); Mean Corpuscular HGB Conc 34.3 g/dL (32-36); Mean Corpuscular Hemoglobin 29.9 pg (27.0-31.0); Mean Corpuscular Volume 87.4 fL (78.0-102.0); Monocytes Absolute Auto 0.48 K/mm3 (0.10-0.90); Monocytes Percent Auto 8.7 % (2.0-11.0); Neutrophils Absolute Auto 4.18 K/mm3 (1.70-7.20); Neutrophils Percent Auto 75.4 % (50.0-70.0); PO2 VBG 63.2 mmHg (35.0-45.0); Platelet Count Result 209 K/mm3 (150-420); Red Blood Count 5.78 M/mm3 (4.70-6.10); Red Cell Distribution Width 11.5 % (11.6-14.4); White Blood Count 5.5 K/mm3 (4.8-10.8); pH VBG 7.16 (7.33-7.43)
[2024-09-19 19:11] LABS: Device ROOM AIR; PCO2 VBG 21.4 mmHg (42.0-48.0)
[2024-09-19 19:16] LABS: Glucose Point of Care 392 mg/dl (65-105)
--- OUTSIDE RECORDS SUMMARY | 2024-09-19 19:24 | XMS_ITS | Referral Summary ---
Author Organization [facility] [employer] Address [address] [place] [address] [place] [address] Care Team Providers Care Youth Officer Name Role Phone Unavailable Primary Care Provider Unavailabl e Source Comments [facility] [employer],non-owned Affiliates and Associated Physician Practices is amultiple site organization consisting of ambulatory clinics and hospital sitesin [place], [place], [place] and [place]. This disclosure is being madepursuant to the Care Everywhere program and may not contain all information available regarding this patient. Last updated 18.[employer] Allergies Active Allergy Reactions Criticality Noted Date Comments Penicillins Itching 03/10/2021 Medications * Be aware that medications may not be up to date on this document. Alwaysverify current medications with the patient. Medication Sig Dispensed Refills Start Date End Date Status Insulin Syringes, Disposable, U-100 0.5 ML MISC Use 1 Each as needed 100 Each 06/24/2019 Active Continuous Blood Gluc Mri Technician (DEXCOM G6 ASSISTANT FOOD SERVICE DIRECTOR) WARREN Use 1 Each once daily 1 [...] Unknown 03/10/2021 3:12 PM CDT Jackeline Vitale CHORUS DANCER-TOOLROOM ATTENDANT LAB - POINT O F CARE ORDERABLES from Last 3 Months or Most Recently Relevant to Health Maintenance
--- OUTSIDE RECORDS SUMMARY | 2024-09-19 19:24 | XMS_ITS | Clinical Summary ---
Author Organization [facility] Address [address] [place] [address] [place] [address] Care Team Providers Care Head Of Loss Prevention Name Role Phone Unavailable Primary Care Provider Unavailabl e Source Comments [facility],non-owned Affiliates and Associated Physician Practices is amultiple site organization consisting of ambulatory clinics and hospital sitesin [place], [place], [place] and [place]. This disclosure is being madepursuant to the Care Everywhere program and may not contain all information available regarding this patient. Last updated 18.[employer] [facility] Allergies Active Allergy Reactions Criticality Noted Date Comments Penicillins Itching 03/10/2021 Medications * Be aware that medications may not be up to date on this document. Alwaysverify current medications with the patient. Medication Sig Dispensed Refills Start Date End Date Status Insulin Syringes, Disposable, U-100 0.5 ML MISC Use 1 Each as needed 100 Each 06/24/2019 Active Continuous Blood Gluc Special Effects Person (DEXCOM G6 HEALTH PHYSICS TECHNICIAN) WARREN Use 1 Each once daily 1 [...] Unknown 03/10/2021 3:12 PM CDT Jackeline Vitale HYDRO ELECTRIC STATION OPERATOR-ANIMAL PARK CODE ENFORCEMENT OFFICER LAB - POINT O F CARE ORDERABLES from Last 3 Months or Most Recently Relevant to Health Maintenance
--- OUTSIDE RECORDS SUMMARY | 2024-09-19 19:24 | XMS_ITS | Continuity of Care Document ---
Author Organization [facility] Address [address] [place] [address] Phone Care Team Providers Care Cable Armorer Operator Name Role Phone Warner Acevedo MD Unavailable [...] PREV VISIT, EST, AGE 18-39 OFFICE/OUTPATIENT VISIT, [facility] Advance Directives Directive Yes / No Effective Date File Name No Information Encounters Encounter Description Practice Location Reason(s) For Visit Diagnoses Date Provider Providers Copied on Encounter PREV VISIT, EST, AGE 18-39 [facility], [address] [place], [place], [id number], [place] tel:[phone] [facility] Medicine physical (chief complaint) Encounter for general adult medical examination without abnormal findings Curtis Hylton. [address] [place], [place], [id number] , [place]. tel:[phone] [facility], [address] [place], [place], [id number], [place] tel:[phone] [facility] No Information Curtis Hylton. [address], [place], [place], [id number] , [place]. tel:[phone] OFFICE/OUTPAT IENT VISIT, [facility], [address], [place], [place], [id number], tel:[phone] [facility] DM (chief complaint) Type I DM without complication Curtis Hylton. [address], [place], [place], [id number] , [place]. tel:[phone] Family History Family Member Type Diagnosis Age At Onset Mother Problem personality disorder Brother Problem Alive and well Father Problem drug dependency Payers Payer name Insurance type Covered alliance party ID Authoriza tion(s) No Information Social History [...] Referred To: Rob Villanueva [address], [phone] Ordered: Referrals: Allopathic & Osteopathic Physicians : [...] DM . Pt just moved back from [place] last month and he was seeing specialist back in [place] but he is about to run out [...] Mental Status Date Cognitive Assessment Orientation - [place] ed to time, place, person, situation.
--- OUTSIDE RECORDS SUMMARY | 2024-09-19 19:24 | XMS_ITS | Continuity of Care Document ---
Author Organization [facility] Address [address] [place] [address] Phone Care Team Providers Care Machinist Instructor Name Role Phone Jignesh PT, GLENDAT, [place] Unavailable Unavailable Procedures Procedure Date PT Evaluation Moderate Complexity Therapeutic Activities Neuromuscular Re-Ed Therapeutic Exercise Advance Directives Directive Yes / No Effective Date File Name No Information Encounters Encounter Description Practice Location Reason(s) For Visit Diagnoses Date Provider Providers Copied on Encounter [facility], [address], [place], [place], [id number], tel:[phone] [place] No Information 4 Jignesh Ledezma. . [facility], [address], [place], [place], [address], [place] tel:[phone] [place] No Information 4 Spencer Peres. . Referring Provider: Access Direct. Family History Family Member Type Diagnosis Age At Onset No Information Payers Payer name Insurance type Covered alliance party ID Authoriza tijose maria(s) Gregory Law [...]
--- OUTSIDE RECORDS SUMMARY | 2024-09-19 19:24 | XMS_ITS | Patient Health Summary ---
Author Organization [facility] Address [address] [place] [address] Care Team Providers Care Shake Packer Name Role Phone Unavailable Primary Care Provider Unavailabl e Note from [facility],non-owned Affiliates and Associated Physician Practices is amultiple site organization consisting of ambulatory clinics and hospital sitesin [place], [place], [place] and [place]. This disclosure is being madepursuant to the Care Everywhere program and may not contain all information available regarding this patient. Last updated 18.[facility] Allergies * Penicillins(Itching) Medications * Be aware that medications may not be up to date on this document. Alwaysverify current medications with the patient. * Insulin Syringes, Disposable, U-100 0.5 ML MISC(Started 06/24/2019) Use 1 Each as needed * Continuous Blood Gluc Cogeneration Operator (DEXCOM G6 BUTTON RECLAIMER) WARREN(Started 08/19/2019) Use 1 Each once daily [...] 1 diabetes mellitus with hyperglycemia (HCC) * AL GLUC MONITOR, CONT, PHYS I&R(Performed 08/25/2020) Performed [...] SPECIMEN / Unknown 03/10/2021 3:12 PM CDT Jackelnie GARCIA LAB - POINT O F CARE ORDERABLES * AL GLUC MONITOR, CONT, PHYS I&R (08/25/2020 8:38 AM CROP AND SOIL TECHNICIAN) Narrative Jackeline Vitale APRN-CNP - 08/25/2020 8:38 AM CROP AND SOIL TECHNICIAN Jackeline Vitale APRN-CNP 08/25/2020 8:47 AM Dexcom cgm G6 downloaded in office. Report reviewed with patient. See progress notes for settings/results noted/recommendations. ( Download will be scan into media. ) Jackeline GARCIA PROCEDURE/MIN OR SURGICAL ORDERABLES
[2024-09-19 19:25] LABS: Alanine Aminotransferase 28 U/L (16-63); Albumin Level 3.8 g/dL (3.4-5.0); Alkaline Phosphatase 121 U/L (46-116); Anion Gap 28 mmol/L (4-12); Aspartate Amino Transferase 17 U/L (15-37); Bilirubin,Total 0.4 mg/dL (0.00-1.00); Blood Urea Nitrogen 14 mg/dL (7-18); Calcium 8.8 mg/dL (8.5-10.1); Carbon Dioxide 10 mmol/L (21-32); Chloride 95 mmol/L (98-108); Estimated CRCL calculation 84 ml/min; Estimated Glomerular Filt Rate > 60; Glucose 391 mg/dL (70-99); Magnesium 1.5 mg/dL (1.8-2.4); Osmolality Calculated 292 mOsm/kg (285-295); Phosphorus 3.9 mg/dL (2.6-4.7); Potassium 4.3 mmol/L (3.5-5.1); Sodium 133 mmol/L (136-145)
[2024-09-19] MEDS: ONDANSETRON INJ 4 MG/2 ML VIAL IV PUSH (19:39)
[2024-09-19] MEDS: SODIUM CHLORIDE 0.9% IV 1,000 ML 999 ML IV CONT ×3 (19:41→21:18)
[2024-09-19] MEDS: INSULIN HUMAN REGULAR (*BKC) 1,000 UNITS/10 ML VIAL 14.2 UNITS IV PUSH (19:42)
[2024-09-19 19:44] LABS: SARS-CoV-2 RNA PCR Negative (Negative)
[2024-09-19 19:45] LABS: Influenza A QL RT-PCR Positive (Negative); Influenza B QL RT-PCR Negative (Negative); RSV RNA, RT-PCR Negative (Negative)
[2024-09-19] MEDS: INSULIN REG 100 UNITS/100 ML 100 UNITS/100 ML BAG 9.45 UNITS IV CONT (19:56)
[2024-09-19 20:40] LABS: Add Urine Microscopic? YES; Appearance Urine Clear (Clear); Bilirubin Urine 1+ (Negative); Blood Urine Trace-intact (Negative); Color Urine Light Yellow (Yellow); Glucose Urine UA 2+ (Negative); Ketones Urine 3+ (Negative); Leukocyte Esterase Ur Negative LEU/UL (Negative); Nitrate Urine Negative (Negative); Protein Urine 3+ (Negative); Specific Grav Ur >= 1.030 (1.010-1.020); Urobilinogen Urine 0.2 mg/dL (0.2-1.0); pH Urine 5.5 (5.0-8.0)
[2024-09-19 20:44] LABS: Bacteria Urine Trace /hpf; RBC Urine 0-2 /hpf (0-2); Squamous Epithelial Cell Urine Rare /hpf (Few); WBC Urine 0-3 /hpf (0-3)
[2024-09-19 21:04] LABS: Glucose Point of Care 289 mg/dl (65-105)
[2024-09-19] MEDS: MAGNESIUM SULF 2 GM/WATER 50ML 2 GM/50 ML BAG IVPB (21:18)
--- NOTE | 2024-09-19 21:30 | PC.NURSE ---
Left AC IV still active.
--- NOTE | 2024-09-19 21:51 | PC.NURSE ---
ERP aware of BP. No new orders.
[2024-09-19 22:01] LABS: Glucose Point of Care 234 mg/dl (65-105)
[2024-09-19] MEDS: INSULIN REG 100 UNITS/100 ML 100 UNITS/100 ML BAG 10.45 UNITS IV CONT (22:09)
== END 2024-09-19 22:15 | disposition short-term general hospital (02) ==
PROVIDERS: Emergency Provider Emergency Medicine; PCP Emergency Medicine
DX: E10.10 Type 1 diabetes mellitus with ketoacidosis without coma (principal); J10.1 Influenza due to other identified influenza virus with other respiratory manifestations; E86.0 Dehydration; Z79.4 Long term (current) use of insulin; Z20.822 Contact with and (suspected) exposure to COVID-19
CPT/HCPCS: 36415; 80053; 81001; 82803; 82948; 83735; 84100; 85025; 87637; 96361; 96365; 96366; 96367; 96375; 99285; J1815; J2405; J3475; J7030

== ENCOUNTER 2024-09-19 22:48 | Inpatient (IN) | payer OTHER, SELFPAY ==
--- NOTE | 2024-09-19 22:47 | ADMGEN ---
This patient, Zhang Ashby, was admitted to Intensive Care Unit-10. Patient/family oriented to hospital policies and general routines including ID bracelet, bed and alarms, visiting hours, pain management, procedures, bathroom and other care routines, personal items, smoking policy, room service/diet, and visiting hours. Information on how to activate the Rapid Response Team has been discussed. Patient/Family are encouraged to report perceived risks to care and to ask questions if they do not understand what they are told or what they should do.
--- OUTSIDE RECORDS SUMMARY | 2024-09-19 22:50 | XMS_ITS | Referral Summary ---
Author Organization [facility] [employer] Address [address] [place] [address] [place] [address] Care Team Providers Care Platform Material Handler Manager Name Role Phone Unavailable Primary Care Provider Unavailabl e Source Comments [facility] [employer],non-owned Affiliates and Associated Physician Practices is amultiple site organization consisting of ambulatory clinics and hospital sitesin [place], [place], [place] and [place]. This disclosure is being madepursuant to the Care Everywhere program and may not contain all information available regarding this patient. Last updated 18.[employer] Allergies Active Allergy Reactions Criticality Noted Date Comments Penicillins Itching 03/10/2021 Medications * Be aware that medications may not be up to date on this document. Alwaysverify current medications with the patient. Medication Sig Dispensed Refills Start Date End Date Status Insulin Syringes, Disposable, U-100 0.5 ML MISC Use 1 Each as needed 100 Each 06/24/2019 Active Continuous Blood Gluc Die Filer (DEXCOM G6 PICKLING DRUM OPERATOR) WARREN Use 1 Each once daily [...] Unknown 03/10/2021 3:12 PM CDT Jackeline Vitale GRADES 9 12 TUTOR-PRIVACY OFFICER LAB - POINT O F CARE ORDERABLES from Last 3 Months or Most Recently Relevant to Health Maintenance
--- OUTSIDE RECORDS SUMMARY | 2024-09-19 22:50 | XMS_ITS | Continuity of Care Document ---
Author Organization [facility] Address [address] [place] [address] Phone Care Team Providers Care Metal Off Bearer Name Role Phone Jignesh PT, GLENDAT, [place] Unavailable Unavailable Procedures Procedure Date PT Evaluation Moderate Complexity Therapeutic Activities Neuromuscular Re-Ed Therapeutic Exercise Advance Directives Directive Yes / No Effective Date File Name No Information Encounters Encounter Description Practice Location Reason(s) For Visit Diagnoses Date Provider Providers Copied on Encounter [facility], [address], [place], [place], [id number], tel:[phone] [place] No Information 4 Jignesh Ledezma. . [facility], [address], [place], [place], [id number], [place] tel:[phone] [place] No Information 4 Spencer Peres. . Referring Provider: Access Direct. Family History Family Member Type Diagnosis Age At Onset No Information Payers Payer name Insurance type Covered democrat ID Authoriza tijose maria(s) Gregory Law LI [...]
--- OUTSIDE RECORDS SUMMARY | 2024-09-19 22:50 | XMS_ITS | Clinical Summary ---
Author Organization [facility] [employer] Address [address] [place] [address] [place] [address] Care Team Providers Care Mill And Coal Transport Operator Name Role Phone Unavailable Primary Care Provider Unavailabl e Source Comments [facility] [employer],non-owned Affiliates and Associated Physician Practices is amultiple site organization consisting of ambulatory clinics and hospital sitesin [place], [place], [place] and [place]. This disclosure is being madepursuant to the Care Everywhere program and may not contain all information available regarding this patient. Last updated 18.[employer] Allergies Active Allergy Reactions Criticality Noted Date Comments Penicillins Itching 03/10/2021 Medications * Be aware that medications may not be up to date on this document. Alwaysverify current medications with the patient. Medication Sig Dispensed Refills Start Date End Date Status Insulin Syringes, Disposable, U-100 0.5 ML MISC Use 1 Each as needed 100 Each 06/24/2019 Active Continuous Blood Gluc Customer Support Professional (DEXCOM G6 DRIVER LICENSE EXAMINER) WARREN Use 1 Each once daily 1 [...] Unknown 03/10/2021 3:12 PM CDT Jackeline Vitale STRIPPING CUTTER AND WINDER-WOOL AND PELT GRADER LAB - POINT O F CARE ORDERABLES from Last 3 Months or Most Recently Relevant to Health Maintenance
--- OUTSIDE RECORDS SUMMARY | 2024-09-19 22:50 | XMS_ITS | Continuity of Care Document ---
Author Organization [facility] Address [address] [place] [address] Phone Care Team Providers Care Quality Improvement Consultant Name Role Phone Warner Acevedo MD Unavailable [...] PREV VISIT, EST, AGE 18-39 OFFICE/OUTPATIENT VISIT, [facility] Advance Directives Directive Yes / No Effective Date File Name No Information Encounters Encounter Description Practice Location Reason(s) For Visit Diagnoses Date Provider Providers Copied on Encounter PREV VISIT, EST, AGE 18-39 [facility], [address] [place], [place], [id number], [place] tel:[phone] [facility] Medicine physical (chief complaint) Encounter for general adult medical examination without abnormal findings Curtis Hylton. [address] [place], [place], [id number] , [place]. tel:[phone] [facility], [address] [place], [place], [id number], [place] tel:[phone] [facility] No Information Curtis Hylton. [address], [place], [place], [id number] , [place]. tel:[phone] OFFICE/OUTPAT IENT VISIT, [facility], [address], [place], [place], [id number], tel:[phone] [facility] DM (chief complaint) Type I DM without complication Curtis Hylton. [address], [place], [place], [id number] , [place]. tel:[phone] Family History Family Member Type Diagnosis Age [...] Referred To: Rob Villanueva [address], [phone] Ordered: Referrals: Allopathic & Osteopathic Physicians : [...] DM . Pt just moved back from [place] last month and he was seeing specialist back in [place] but he is about to run out [...] Mental Status Date Cognitive Assessment Orientation - Bolton ed to time, place, person, situation.
--- OUTSIDE RECORDS SUMMARY | 2024-09-19 22:51 | XMS_ITS | Patient Health Summary ---
Author Organization [facility] [employer] Address [address] [place] [address] Care Team Providers Care Television Receiver Analyzer Name Role Phone Unavailable Primary Care Provider Unavailabl e Note from [facility],non-owned Affiliates and Associated Physician Practices is amultiple site organization consisting of ambulatory clinics and hospital sitesin [place], [place], [place] and [place]. This disclosure is being madepursuant to the Care Everywhere program and may not contain all information available regarding this patient. Last updated 18.[facility] [employer] Allergies * Penicillins(Itching) Medications * Be aware that medications may not be up to date on this document. Alwaysverify current medications with the patient. * Insulin Syringes, Disposable, U-100 0.5 ML MISC(Started 06/24/2019) Use 1 Each as needed * Continuous Blood Gluc Radiological Engineer (DEXCOM G6 PERSONNEL RESEARCH SCIENTIST) WARREN(Started 08/19/2019) Use 1 Each once daily [...] 1 diabetes mellitus with hyperglycemia (HCC) * WA GLUC MONITOR, CONT, PHYS I&R(Performed 08/25/2020) Performed [...] - POINT O F CARE ORDERABLES * WA GLUC MONITOR, CONT, PHYS I&R (08/25/2020 8:38 AM CITY MAINTENANCE MANAGER) Narrative Jackeline Vitale APRN-CNP - 08/25/2020 8:38 AM CITY MAINTENANCE MANAGER Jackeline Vitale APRN-CNP 08/25/2020 8:47 AM Dexcom cgm G6 downloaded in office. Report reviewed with patient. See progress notes for settings/results noted/recommendations. ( Download will be scan into media. ) Jackeline GARCIA PROCEDURE/MIN OR SURGICAL ORDERABLES
[2024-09-19 23:00] VITALS: BP 148/94; PULSE 101; RESP 21; TEMP 37.4; O2SAT 97
[2024-09-19 23:26] LABS: Anion Gap 24 mmol/L (4-12); Blood Urea Nitrogen 14 mg/dL (9-20); Calcium 8.4 mg/dL (8.4-10.2); Carbon Dioxide 9 mmol/L (22-30); Chloride 107 mmol/L (98-107); Estimated Glomerular Filt Rate > 60; Glucose 144 mg/dL (65-110); Phosphorus 2.1 mg/dL (2.5-4.5); Sodium 140 mmol/L (137-145)
[2024-09-19] MEDS: KCL 20 MEQ/D5/0.45% SOD CHL 1,000 ML 150 ML IV CONT (23:26)
[2024-09-19 23:29] LABS: Hemoglobin A1C 12.6 % (<5.7)
[2024-09-19 23:38] VITALS: BMI 25.2
[2024-09-19 23:39] LABS: Glucose Point of Care 133 mg/dl (65-105)
[2024-09-19] MEDS: INSULIN HUMAN REGULAR (*BKC) 100 UNITS in SODIUM CHLORIDE 0.9% IV 99 ML IV CONT (23:49)
[2024-09-19] MEDS: ACETAMINOPHEN 325 MG TABLET 650 MG PO (23:56)
[2024-09-20] VITALS (13 sets, daily range): BP systolic 111–146; BP diastolic 64–92; PULSE 81–99; RESP 17–21; TEMP 36.6–37.3; O2SAT 95–100
--- NOTE | 2024-09-20 00:07 | P.HP_ITS ---
H&P: HPI History of Present Illness Date/Time: 09/20/24 00:07 Chief Complaint: Nausea and vomiting for 4 days Narrative: 24-year-old male with past medical history of type 1 diabetes mellitus who presented to the ER at [facility] due to nausea vomiting since Sunday (4 days). He reports that he started having upper respiratory symptoms with rhinorrhea, nasal congestion and cough 4 days ago. He did not feel well so he did not take his Lantus or lispro insulin. The next day he then began having onset of nausea vomiting. Is nausea vomiting was persistent and consisted of anything he ate or drink. He denies any associated abdominal pain. He has had some mild sore throat. Denies any known ill contacts. The patient's glucoses on arrival to [facility] were 386. Labs demonstrated pseudo hyponatremia with anion gap acidosis with serum bicarb of 10 an anion gap of 28. VBG demonstrated pH of 7.16 with pCO2 of 21 and urine demonstrated elevated specific gravity, 3+ ketones and 2+ glucose. His influenza a PCR was also found to be positive. He did not receive an influenza vaccine. The patient received 2 L of normal saline and was started on insulin drip. I was contacted for transfer. At that time I requested patient receive 3rd Liter of IV fluid hydration and 2 g magnesium sulfate rider. Patient gives variable reports of his glycemic control at home. He told me that he had never been admitted for DKA but told nursing staff that he has been admitted for DKA before. He had reported to nursing staff that he did not having difficulty obtaining his medications or affording his medications but then inform me that the reason he had not been taking his medications and why his A1c was higher than usual was because he had a switch in insurance couple of months ago. He reports that his A1c was 8 3 months ago but we cannot confirm this. He denies any diarrhea. He does report polydipsia. But denies any increased urinary frequency urgency or polyphagia. He denies known history of retinopathy or neuropathy. Review of Systems Review of Systems: 12 systems were reviewed with pertinent positives and negatives per HPI. Except as documented in the HPI, all other systems were reviewed and are negative. [facility] Past Medical History Medical History (Updated 09/20/24 @ 00:28 by Nika Byrd DO) Type 1 diabetes mellitus Surgical History Surgical History (Updated 09/20/24 @ 00:27 by Nika Byrd DO) No history of previous surgery Family History Family History (Updated 09/20/24 @ 00:42 by Tracey He RN) Other Unknown family medical history Social History Social History (Updated 09/20/24 @ 07:07 by Nika Byrd DO) Social History: He reports that he lives with his grandmother. 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 He has been vaping since the age of 21. He drinks alcohol every 1-2 months. He denies illicit substance use. Code status: Full code Surrogate decision maker: Graham (father) Years smoked: 2 Smoking status: Current every day smoker Tobacco type: e-cigarettes/vaping Alcohol intake: current Substance use: never Substance use type: does not use Do You Feel Safe in your Home?: Yes Lack of Transportation: No Lack of Food: Never True Current Housing: I Have Housing Concerned About Future Housing: No Difficulty Paying Gas/Electric Bills: No Difficulty Paying for Meds: No Currently Unemployed: No Education: High School Diploma/GED Difficulty w/ Childcare or Family Care: No Spiritual care concerns: No Meds Home Medications and Allergies Home Medications ?Medication ?Instructions ?Recorded ?Confirmed ?Type insulin glargine 100 unit/mL (3 60 unit subcut QPM 09/19/24 09/20/24 History mL) subcutaneous pen (Lantus Solostar U-100 Insulin) insulin lispro 100 unit/mL 10 unit subcut ACINSULIN 09/19/24 09/20/24 History subcutaneous pen Allergies Allergy/AdvReac Type Severity Reaction Status Date / Time No Known Allergies Allergy Mild Verified 09/19/24 19:09 Vital Signs Vital Signs - 24 hr 09/19/24 23:00 Temperature 99.3 F Pulse Rate 101 H Respiratory Rate 21 H Blood Pressure 148/94 H Pulse Oximetry 97 Exam Narrative: Weight 86.9 kg BMI 25.3 Const: Other: No acute distress, well-developed well-nourished HENMT: Other: Mucous membranes are dry, no oral pharyngeal erythema Eyes: Other: Pupils are equal and reactive, no scleral icterus, no conjunctival pallor Neck: Other: No lymphadenopathy, trachea midline Resp: Other: Clear to auscultation bilaterally, no increased work of breathing Cardio: Other: Regular rate, regular rhythm, 2+ bilateral radial pedal pulses, no murmur GI: Other: Soft, nontender, nondistended, positive bowel sounds Skin: Other: No jaundice, no pallor Neuro: Other: Alert oriented, speech is clear, no facial asymmetry, no localizing neurologic deficits noted during the course of conversation Extrem: Other: No foot wounds, no clubbing, no cyanosis, no edema Psych: Other: Appropriate mood, flat affect, cooperative H&P: Results Labs Labs: Labs from outside facility: CBC: WBC 5.5 hemoglobin 17.3 hematocrit 50 platelet count 209 with 75% neutrophils VBG: PH 7.16 pCO2 21 PO2 of 63 bicarb of 7.4 CMP: Sodium 133 potassium 4.3 chloride 95 bicarb 10 anion gap 28 BUN 14 creatinine 1.38 glucose 391 calcium of 8.8 phosphorus 3.9 magnesium 1.5 AST 17 ALT 28 alk-phos 121 albumin 3.8 total protein of 8 UA: Urine specific gravity greater than 1.03 3+ protein 2+ glucose 3+ ketones trace intact blood cells 1+ bilirubin negative nitrate negative esterase, trace bacteria, rare squamous cells Influenza a PCR positive [facility] 09/19/24 23:12 Sodium 140 Potassium 4.0 Chloride 107 Carbon Dioxide 9 L BUN 14 Creatinine 0.69 L Glucose 144 H Calcium 8.4 Assessment and Plan Assessment and plan (1) DKA, type 1, not at goal: Code(s): E10.10 - Type 1 diabetes mellitus with ketoacidosis without coma Status: Acute (2) Influenza A: Code(s): J10.1 - Influenza due to other identified influenza virus with other respiratory manifestations Status: Acute (3) Noncompliance with medication regimen: Code(s): Z91.148 - Patient's other noncompliance with medication regimen for other reason Status: Acute (4) Dehydration: Code(s): E86.0 - Dehydration Status: Acute (5) Hypophosphatemia: Code(s): E83.39 - Other disorders of phosphorus metabolism Status: Acute Plan Patient been admitted for DKA. DKA is likely due to a combination of noncompliance with medication regimen and complicated by dehydration from nausea vomiting associated with influenza A infection. The patient's diabetes is clearly historically uncontrolled with A1c greater than 12%. He has been placed on insulin drip per protocol with IV fluids with dextrose per protocol. Will continue appropriate potassium supplementation. Will monitor serial electrolyte panels q.4 hours. Will resume patient's home Lantus and sliding scale insulin once anion gap is closed in serum bicarb is near normal. Patient has been admitted to the ICU. Superintendent Greens has been consulted. Patient did receive 3 L of isotonic fluid supplementation. Will give 1 more Liter normal saline 500 mL an hour. The patient been started on Tamiflu b.i.d.. Will provide Tylenol and antiemetics as needed and continue otherwise supportive care. Patient did have mild hypophosphatemia and hypo magnesemia patient did receive 2 g magnesium sulfate rider at the outside ER. Will give patient a dose of sodium phosphate IV. Will repeat magnesium and phosphorus levels with a.m. labs Quality VTE Prophylaxis VTE prophylaxis: pharmacologic ordered (Lovenox 40 mg subQ daily.) Hospitalist [facility] Advance Care Plan I have confirmed that the patient's Advanced Care Plan is present, code status is documented, or surrogate decision maker is listed in patient medical record.: Yes Medication Reconciliation I have utilized all available resources to obtain, update and review the patients current medications (includes all prescriptions, OTC, herbals, cannabis, and nutritional supplements).: Yes
[2024-09-20 00:16] LABS: Glucose Point of Care 184 mg/dl (65-105)
[2024-09-20] MEDS: SODIUM CHLORIDE 0.9% IV 1,000 ML 250 ML IV CONT (00:57)
[2024-09-20] MEDS: OSELTAMIVIR PHOSPHATE 75 MG CAPSULE PO ×3 (00:57→21:04)
[2024-09-20] MEDS: SODIUM PHOSPHATE 20 MM in DEXTROSE 5% IN WATER 250 ML 50 MM IVPB (00:57)
[2024-09-20 01:28] LABS: MRSA (PCR) NOT DETECTED (NOT DETECTE)
[2024-09-20 03:23] LABS: Glucose Point of Care 235 mg/dl (65-105)
[2024-09-20 03:23] LABS: Glucose Point of Care 233 mg/dl (65-105)
[2024-09-20 03:23] LABS: Glucose Point of Care 239 mg/dl (65-105)
[2024-09-20 03:30] LABS: Anion Gap 19 mmol/L (4-12); Blood Urea Nitrogen 12 mg/dL (9-20); Carbon Dioxide 9 mmol/L (22-30); Chloride 107 mmol/L (98-107); Estimated CRCL calculation 190 ml/min; Estimated Glomerular Filt Rate > 60; Glucose 238 mg/dL (65-110); Magnesium 1.9 mg/dL (1.6-2.3); Potassium 3.9 mmol/L (3.4-5.0); Sodium 135 mmol/L (137-145)
[2024-09-20 04:15] LABS: Glucose Point of Care 223 mg/dl (65-105)
[2024-09-20] MEDS: KCL 20 MEQ/D5/0.45% SOD CHL 1,000 ML 150 ML IV CONT ×3 (06:19→22:16)
[2024-09-20 07:16] LABS: Glucose Point of Care 217 mg/dl (65-105)
[2024-09-20 07:16] LABS: Glucose Point of Care 176 mg/dl (65-105)
[2024-09-20 07:16] LABS: Glucose Point of Care 213 mg/dl (65-105)
[2024-09-20 07:57] LABS: Glucose Point of Care 192 mg/dl (65-105)
[2024-09-20 08:14] LABS: Anion Gap 10 mmol/L (4-12); Blood Urea Nitrogen 10 mg/dL (9-20); Carbon Dioxide 15 mmol/L (22-30); Chloride 108 mmol/L (98-107); Estimated CRCL calculation 213 ml/min; Estimated Glomerular Filt Rate > 60; Glucose 180 mg/dL (65-110); Potassium 3.6 mmol/L (3.4-5.0); Sodium 133 mmol/L (137-145)
[2024-09-20 09:04] LABS: Glucose Point of Care 213 mg/dl (65-105)
[2024-09-20] MEDS: ENOXAPARIN 40 MG/0.4 ML SYRINGE SUB-Q (09:09)
[2024-09-20] MEDS: LACTATED RINGERS 1,000 ML 999 ML IV CONT (09:09)
--- NOTE | 2024-09-20 10:00 | PC.NURSE ---
Consulted perinatal educator at 1000. No answer, voicemail with callback number left.
[2024-09-20 10:04] LABS: Glucose Point of Care 197 mg/dl (65-105)
--- NOTE | 2024-09-20 10:43 | P.CONIN_ITS ---
Assessment and Plan Assessment and plan (1) DKA, type 1, not at goal: Code(s): E10.10 - Type 1 diabetes mellitus with ketoacidosis without coma Status: Acute Assessment and Plan: Patient presented with nausea, vomiting, unable to keep solids or liquids down. He was not taking his Lantus on lispro at home -presented thus ED at [facility] and was found to have elevated a blood sugars, anion gap metabolic acidosis with low HC03. -patient was diagnosed with DKA, given 3 L IV fluid bolus in the ER and started on insulin infusion per DKA protocol -upon arrival to the ICU overnight patient was given additional IV fluid bolus -this morning patient remained acidotic, additional 1000 mL LR IV fluid bolus was given -await repeat BMP, hopefully patient can be he transition to long-acting insulin and sliding scale insulin once his anion gap and CO2 improves P -hemoglobin A1c this admission is 12.6 (it was 12.7 in February 2024) (2) Influenza A: Code(s): J10.1 - Influenza due to other identified influenza virus with other respiratory manifestations Status: Acute Assessment and Plan: Patient also presented with rhinorrhea, nasal congestion, sore throat pain -influenza A was positive in the ER -COVID and RSV were negative -patient started on Tamiflu (3) Dehydration: Code(s): E86.0 - Dehydration Status: Acute Assessment and Plan: Unable to keep solids and liquids down x4 days -currently adequately rehydrated -continue to monitor (4) Noncompliance with medication regimen: Code(s): Z91.148 - Patient's other noncompliance with medication regimen for other reason Status: Acute Assessment and Plan: Patient has switched his pain shortness for did not have insulin for a while -also his hemoglobin A1c remains elevated -have counseled patient with complaints of insulin Plan DVT prophylaxis: Lovenox Stress ulcer prophylaxis: Not indicated Nutrition: Clear liquid diet Code Status: Full Critical Care Time Spent: 47 minutes Due to a high probability of clinically significant, life threatening deterioration, the patient required my highest level of preparedness to intervene emergently and I personally spent this critical care time directly and personally managing the patient. This critical care time included obtaining a history; examining the patient; pulse oximetry; ordering and review of studies; arranging urgent treatment with development of a management plan; evaluation of patient's response to treatment; frequent reassessment; and discussions with other providers. It was exclusive of separately billable procedures and treating other patients and teaching time. Please see Assessment and Plan section and the rest of the note for further information on patient assessment and treatment This dictation may have been done utilizing a voice recognition system. Attempts have been made to correct errors. However, there may be uncorrected grammatical, spelling, and recognitions errors present. Bog Cutter Consult Note Consult date: 09/20/24 Reason for consult: Diabetic ketoacidosis, influenza A, hyperglycemia, nausea, vomiting, not taking his Lantus on lispro insulin HPI: Zhang Ashby is a 24 year old male with significant past medical history of type 1 diabetes with history of DKA, presented to the ER at [facility] on 09/19/2024 with complains of nausea, vomiting since 09/16/2024. Stated he had some upper respiratory symptoms with rhinorrhea, nasal congestion and cough for 4 days, since he has not been feeling well he was not taking his Lantus on lispro. He then started having nausea, vomiting which has been persistent, unable to eat or drink. He denies any abdominal pain. He also complained of sore throat. At [facility] ER blood sugars were 386, patient had a anion gap metabolic acidosis, with serum bicarb of 10 and gap of 28. PH was 7.16. UA showed 3+ ketones and 2+ glucose. COVID, RSV were negative, influenza A was positive. Patient was given 3 L IV fluids and transferred to [facility] ICU for further management he was given additional 1 L IV fluid bolus in the ICU. Started on insulin infusion per DKA protocol and maintenance IV fluid Patient seen and examined this morning, is a pleasant young gentleman currently in no acute distress. States he is hungry but denies any nausea, vomiting, diarrhea, abdominal pain, chest pain, shortness of breath. Patient remains on insulin infusion and maintenance IV fluid. Urine output has been added, afebrile, hemodynamically stable Review of Systems 2 Review of Systems: All systems reviewed & are unremarkable except as noted in HPI and below PMFSH Past Medical History Medical History (Updated 09/20/24 @ 00:28 by Nika Byrd DO) Type 1 diabetes mellitus Surgical History Surgical History (Updated 09/20/24 @ 00:27 by Nika Byrd DO) No history of previous surgery Family History Family History (Updated 09/20/24 @ 00:42 by Tracey He RN) Other Unknown family medical history Social History Social History (Updated 09/20/24 @ 07:07 by Nika Byrd DO) Social History: He reports that he lives with his grandmother. 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 He drinks alcohol every 1-2 months. He denies illicit substance use. Code status: Full code Surrogate decision maker: Graham (father) Years smoked: 2 Smoking status: Current every day smoker Tobacco type: e-cigarettes/vaping Alcohol intake: current Substance use: never Substance use type: does not use Do You Feel Safe in your Home?: Yes Lack of Transportation: No Lack of Food: Never True Current Housing: I Have Housing Concerned About Future Housing: No Difficulty Paying Gas/Electric Bills: No Difficulty Paying for Meds: No Currently Unemployed: No Education: High School Diploma/GED Difficulty w/ Childcare or Family Care: No Spiritual care concerns: No Meds Home Medications and Allergies Home Medications ?Medication ?Instructions ?Recorded ?Confirmed ?Type insulin glargine 100 unit/mL (3 60 unit subcut QPM 09/19/24 09/20/24 History mL) subcutaneous pen (Lantus Solostar U-100 Insulin) insulin lispro 100 unit/mL 10 unit subcut ACINSULIN 09/19/24 09/20/24 History subcutaneous pen Allergies Allergy/AdvReac Type Severity Reaction Status Date / Time No Known Allergies Allergy Mild Verified 09/19/24 19:09 Vital Signs Vital Signs - 24 hr 09/19/24 23:00 09/20/24 00:00 09/20/24 00:00 Temperature 99.3 F Pulse Rate 101 H 93 Respiratory Rate 21 H 18 Blood Pressure 148/94 H 146/84 H Pulse Oximetry 97 100 Oxygen Delivery Room Air 09/20/24 00:00 09/20/24 02:00 09/20/24 02:00 Temperature Pulse Rate 99 89 89 Respiratory Rate 18 Blood Pressure 128/80 Pulse Oximetry 97 Oxygen Delivery 09/20/24 03:14 09/20/24 04:00 09/20/24 04:00 Temperature 98.0 F 98.0 F Pulse Rate 87 Respiratory Rate 18 Blood Pressure 121/76 Pulse Oximetry 97 Oxygen Delivery Room Air 09/20/24 04:00 09/20/24 06:00 09/20/24 06:00 Temperature Pulse Rate 88 86 86 Respiratory Rate 17 Blood Pressure 124/78 Pulse Oximetry 96 Oxygen Delivery 09/20/24 08:00 09/20/24 08:00 09/20/24 10:00 Temperature 98.3 F Pulse Rate 95 85 82 Respiratory Rate 21 H Blood Pressure 143/92 H Pulse Oximetry 95 Oxygen Delivery 09/20/24 10:00 Temperature Pulse Rate 82 Respiratory Rate 18 Blood Pressure 125/84 Pulse Oximetry 97 Oxygen Delivery Exam 2 Narrative: General: Pleasant young gentleman in no acute distress HEENT:? Moist oral mucosa, pupils equal and reactive, sclera is clear, no oral or pharyngeal erythema Neck:? Supple Respiratory:? Clear to auscultation bilaterally, no wheezing Cardiac:? S1-S2 normal, regular rate and rule Abdomen:? Soft, nontender, nondistended, normoactive bowel sounds Extremities:? No edema, palpable pedal pulses Neuro:? Patient is awake, alert, oriented, nonfocal, able to answer questions appropriately and follows simple commands Skin:? Tattoos noted, no other skin lesion Psych:? Normal mentation after Results Labs 09/20/24 07:49 Labs: BMP 09/19/24 09/20/24 09/20/24 23:12 03:15 07:49 Sodium 140 135 L 133 L Potassium 4.0 3.9 3.6 Chloride 107 107 108 H Carbon Dioxide 9 L 9 L 15 L BUN 14 12 10 Creatinine 0.69 L 0.58 L 0.51 L Glucose 144 H 238 H 180 H Calcium 8.4 8.0 L 8.0 L Quality VTE Prophylaxis VTE prophylaxis: pharmacologic ordered Hospitalist [facility] Advance Care Plan I have confirmed that the patient's Advanced Care Plan is present, code status is documented, or surrogate decision maker is listed in patient medical record.: Yes Medication Reconciliation I have utilized all available resources to obtain, update and review the patients current medications (includes all prescriptions, OTC, herbals, cannabis, and nutritional supplements).: Yes
[2024-09-20 10:59] LABS: Glucose Point of Care 212 mg/dl (65-105)
[2024-09-20] MEDS: POTASSIUM CHLORIDE 20 MEQ ER TABLET 40 MEQ PO ×2 (11:00→17:25)
[2024-09-20 11:50] LABS: Glucose Point of Care 211 mg/dl (65-105)
[2024-09-20 12:36] LABS: Anion Gap 12 mmol/L (4-12); Blood Urea Nitrogen 8 mg/dL (9-20); Carbon Dioxide 16 mmol/L (22-30); Chloride 105 mmol/L (98-107); Estimated CRCL calculation 220 ml/min; Estimated Glomerular Filt Rate > 60; Glucose 210 mg/dL (65-110); Potassium 3.5 mmol/L (3.4-5.0); Sodium 133 mmol/L (137-145)
[2024-09-20 13:13] LABS: Glucose Point of Care 224 mg/dl (65-105)
[2024-09-20 14:46] LABS: Glucose Point of Care 235 mg/dl (65-105)
[2024-09-20 15:03] LABS: Glucose Point of Care 226 mg/dl (65-105)
[2024-09-20 16:02] LABS: Glucose Point of Care 237 mg/dl (65-105)
[2024-09-20 16:38] LABS: Anion Gap 11 mmol/L (4-12); Blood Urea Nitrogen 6 mg/dL (9-20); Calcium 8.1 mg/dL (8.4-10.2); Carbon Dioxide 17 mmol/L (22-30); Chloride 105 mmol/L (98-107); Estimated CRCL calculation 209 ml/min; Estimated Glomerular Filt Rate > 60; Glucose 235 mg/dL (65-110); Potassium 3.4 mmol/L (3.4-5.0); Sodium 133 mmol/L (137-145)
[2024-09-20] MEDS: ACETAMINOPHEN 325 MG TABLET 650 MG PO ×2 (17:26→22:15)
[2024-09-20 17:33] LABS: Glucose Point of Care 237 mg/dl (65-105)
[2024-09-20] MEDS: SODIUM CHLORIDE 0.9% IV 1,000 ML 150 ML IV CONT (18:34)
[2024-09-20 18:40] LABS: Glucose Point of Care 253 mg/dl (65-105)
[2024-09-20 20:14] LABS: Anion Gap 12 mmol/L (4-12); Blood Urea Nitrogen 5 mg/dL (9-20); Calcium 8.2 mg/dL (8.4-10.2); Carbon Dioxide 17 mmol/L (22-30); Chloride 105 mmol/L (98-107); Estimated CRCL calculation 217 ml/min; Estimated Glomerular Filt Rate > 60; Glucose 221 mg/dL (65-110); Potassium 3.5 mmol/L (3.4-5.0); Sodium 134 mmol/L (137-145)
[2024-09-20 20:30] LABS: Glucose Point of Care 228 mg/dl (65-105)
[2024-09-21] VITALS (8 sets, daily range): BP systolic 111–149; BP diastolic 76–98; PULSE 63–85; RESP 16–20; TEMP 36.2–37; O2SAT 95–100
[2024-09-21] MEDS: KETOROLAC 10 MG TABLET PO ×2 (00:08→08:01)
[2024-09-21 00:13] LABS: Glucose Point of Care 227 mg/dl (65-105)
[2024-09-21 00:13] LABS: Glucose Point of Care 193 mg/dl (65-105)
[2024-09-21 00:13] LABS: Glucose Point of Care 192 mg/dl (65-105)
[2024-09-21 00:13] LABS: Glucose Point of Care 235 mg/dl (65-105)
[2024-09-21 00:49] LABS: Anion Gap 12 mmol/L (4-12); Blood Urea Nitrogen 3 mg/dL (9-20); Calcium 8.1 mg/dL (8.4-10.2); Carbon Dioxide 17 mmol/L (22-30); Chloride 105 mmol/L (98-107); Estimated CRCL calculation 258 ml/min; Estimated Glomerular Filt Rate > 60; Glucose 237 mg/dL (65-110); Potassium 3.4 mmol/L (3.4-5.0); Sodium 134 mmol/L (137-145)
[2024-09-21] MEDS: SODIUM CHLORIDE 0.9% IV 1,000 ML 150 ML IV CONT (02:14)
[2024-09-21 04:24] LABS: Hematocrit 38.1 % (42.0-52.0); Hemoglobin 13.6 g/dL (14.0-18.0); Immature Granulocyte Absolute 0.01 K/mm3 (0.00-0.031); Immature Granulocyte Percent A 0.3 % (0-0.5); Lymphocytes Absolute Auto 1.73 K/mm3 (0.9-3.2); Lymphocytes Percent Auto 44.4 % (18.3-44.2); Mean Corpuscular HGB Conc 35.7 g/dl (32-36); Mean Corpuscular Hemoglobin 30.8 pg (26-34); Mean Corpuscular Volume 86.2 fl (80-100); Mean Platelet Volume 9.5 fl (7.4-10.4); Monocytes Absolute Auto 0.5 K/mm3 (0.1-0.6); Monocytes Percent Auto 12.1 % (2.6-8.5); Neutrophils Absolute Auto 1.7 K/mm3 (1.3-6.7); Neutrophils Percent Auto 43.2 % (45.5-73.1); Platelet Count Result 144 k/mm3 (150-375); Red Blood Count 4.42 M/mm3 (4.6-6.20); Red Cell Distribution Width 11.7 % (11.5-14.5); White Blood Count 3.9 K/mm3 (4.5-10.0)
[2024-09-21 04:33] LABS: Alanine Aminotransferase 16 U/L (6-50); Albumin Level 2.9 g/dL (3.5-5.1); Alkaline Phosphatase 72 U/L (38-126); Anion Gap 9 mmol/L (4-12); Aspartate Amino Transferase 20 U/L (17-59); Bilirubin,Total 0.4 mg/dL (0.2-1.3); Blood Urea Nitrogen 3 mg/dL (9-20); Calcium 8.2 mg/dL (8.4-10.2); Carbon Dioxide 22 mmol/L (22-30); Chloride 106 mmol/L (98-107); Estimated CRCL calculation 233 ml/min; Estimated Glomerular Filt Rate > 60; Glucose 208 mg/dL (65-110); Magnesium 1.7 mg/dL (1.6-2.3); Phosphorus 1.4 mg/dL (2.5-4.5); Potassium 3.1 mmol/L (3.4-5.0); Sodium 137 mmol/L (137-145)
[2024-09-21] MEDS: INSULIN GLARGINE (*BKC) 100 UNITS/ML 60 UNITS SUB-Q (05:17)
[2024-09-21] MEDS: POTASSIUM PHOS,M-BASIC-D-BASIC 40 MMOL in SODIUM CHLORIDE 0.9% IV 250 ML 43.89 MMOL IVPB (05:17)
[2024-09-21] MEDS: ACETAMINOPHEN 325 MG TABLET 650 MG PO (06:07)
[2024-09-21 06:14] LABS: Glucose Point of Care 246 mg/dl (65-105)
[2024-09-21 06:14] LABS: Glucose Point of Care 257 mg/dl (65-105)
[2024-09-21 06:14] LABS: Glucose Point of Care 202 mg/dl (65-105)
[2024-09-21 06:14] LABS: Glucose Point of Care 225 mg/dl (65-105)
[2024-09-21 06:14] LABS: Glucose Point of Care 207 mg/dl (65-105)
[2024-09-21 06:14] LABS: Glucose Point of Care 224 mg/dl (65-105)
[2024-09-21] MEDS: OSELTAMIVIR PHOSPHATE 75 MG CAPSULE PO ×2 (08:01→21:25)
[2024-09-21] MEDS: ENOXAPARIN 40 MG/0.4 ML SYRINGE SUB-Q (08:03)
[2024-09-21 08:10] LABS: Glucose Point of Care 153 mg/dl (65-105)
[2024-09-21] MEDS: POTASSIUM CHLORIDE 20 MEQ ER TABLET 40 MEQ PO (09:37)
--- NOTE | 2024-09-21 10:44 | WPDINTPN ---
Progress Note: A&P Assessment and Plan (1) DKA, type 1, not at goal: Code(s): E10.10 - Type 1 diabetes mellitus with ketoacidosis without coma Status: Acute Assessment and Plan: Patient presented with nausea, vomiting, unable to keep solids or liquids down. He was not taking his Lantus on lispro at home -presented thus ED at [place] and was found to have elevated a blood sugars, anion gap metabolic acidosis with low HC03. -patient was diagnosed with DKA, given 3 L IV fluid bolus in the ER and started on insulin infusion per DKA protocol -upon arrival to the ICU overnight patient was given additional IV fluid bolus -09/22: patient has been transition to long-acting insulin and sliding scale insulin -continue diabetic diet -dietitian and medical educator to evaluate the patient on Friday 09/22 -hemoglobin A1c this admission is 12.6 (it was 12.7 in February 2024) (2) Influenza A: Code(s): J10.1 - Influenza due to other identified influenza virus with other respiratory manifestations Status: Acute Assessment and Plan: Patient also presented with rhinorrhea, nasal congestion, sore throat pain -influenza A was positive in the ER -COVID and RSV were negative -continue Tamiflu (3) Dehydration: Code(s): E86.0 - Dehydration Status: Acute Assessment and Plan: RESOLVED compliance Unable to keep solids and liquids down x4 days -currently adequately rehydrated -continue to monitor (4) Noncompliance with medication regimen: Code(s): Z91.148 - Patient's other noncompliance with medication regimen for other reason Status: Acute Assessment and Plan: Patient has switched his pain shortness for did not have insulin for a while -also his hemoglobin A1c remains elevated -have counseled patient with compliance of insulin Plan DVT prophylaxis: Lovenox Stress ulcer prophylaxis: Not indicated Nutrition: Diabetic diet Code Status: Full Critical Care Time Spent: 31 minutes Patient may transfer out of the ICU if okay with hospitalist Due to a high probability of clinically significant, life threatening deterioration, the patient required my highest level of preparedness to intervene emergently and I personally spent this critical care time directly and personally managing the patient. This critical care time included obtaining a history; examining the patient; pulse oximetry; ordering and review of studies; arranging urgent treatment with development of a management plan; evaluation of patient's response to treatment; frequent reassessment; and discussions with other providers. It was exclusive of separately billable procedures and treating other patients and teaching time. Please see Assessment and Plan section and the rest of the note for further information on patient assessment and treatment This dictation may have been done utilizing a voice recognition system. Attempts have been made to correct errors. However, there may be uncorrected grammatical, spelling, and recognitions errors present. Subjective Date/time seen: 09/21/24 10:44 Interval history: Reason for consult: Diabetic ketoacidosis, influenza A, hyperglycemia, nausea, vomiting, not taking his Lantus on lispro insulin 09/22/2024: Patient seen and examined the ICU, is a pleasant gentleman currently in no acute distress. Insulin infusion is off, patient was transitioned to Lantus and sliding scale insulin early this morning. Tolerating diet, denies any chest pain, shortness a with, nausea vomiting, diarrhea. States his congestion and sore throat is improving. Hemodynamically stable, afebrile with adequate urine output Review of Systems Review of Systems: All systems reviewed & are unremarkable except as noted in HPI and below Exam Narrative: General: Pleasant young gentleman in no acute distress HEENT:? Moist oral mucosa, pupils equal and reactive, sclera is clear, no oral or pharyngeal erythema Neck:? Supple Respiratory:? Clear to auscultation bilaterally, no wheezing Cardiac:? S1-S2 normal, regular rate and rule Abdomen:? Soft, nontender, nondistended, normoactive bowel sounds Extremities:? No edema, palpable pedal pulses Neuro:? Patient is awake, alert, oriented, nonfocal, able to answer questions appropriately and follows simple commands Skin:? Tattoos noted, no other skin lesion Psych:? Normal mentation after Objective Data Vital Signs Vital Signs: Vital Signs - 24 hr 09/20/24 12:00 09/20/24 12:00 09/20/24 14:00 Temperature 98 F Pulse Rate 84 85 81 Respiratory Rate 19 18 Blood Pressure 111/64 136/89 Pulse Oximetry 97 100 Oxygen Delivery 09/20/24 14:00 09/20/24 16:00 09/20/24 16:00 Temperature 98.2 F Pulse Rate 84 94 85 Respiratory Rate 18 Blood Pressure 143/85 H Pulse Oximetry 100 Oxygen Delivery 09/20/24 18:00 09/20/24 18:00 09/20/24 20:00 Temperature 99.1 F Pulse Rate 91 91 82 Respiratory Rate 20 17 Blood Pressure 126/79 135/86 Pulse Oximetry 96 95 Oxygen Delivery 09/20/24 20:00 09/20/24 20:00 09/20/24 22:00 Temperature Pulse Rate 81 83 Respiratory Rate 20 Blood Pressure 128/81 Pulse Oximetry 96 Oxygen Delivery Room Air 09/20/24 22:00 09/21/24 00:00 09/21/24 00:00 Temperature 98.4 F Pulse Rate 83 76 Respiratory Rate 16 Blood Pressure 132/84 Pulse Oximetry 95 Oxygen Delivery Room Air 09/21/24 00:00 09/21/24 02:00 09/21/24 02:00 Temperature Pulse Rate 73 73 73 Respiratory Rate 18 Blood Pressure 111/76 Pulse Oximetry 96 Oxygen Delivery 09/21/24 04:00 09/21/24 04:00 09/21/24 04:00 Temperature 97.1 F L Pulse Rate 69 63 Respiratory Rate 17 Blood Pressure 135/89 Pulse Oximetry 96 Oxygen Delivery Room Air 09/21/24 06:00 09/21/24 06:00 09/21/24 08:00 Temperature 98.4 F Pulse Rate 74 74 84 Respiratory Rate 20 19 Blood Pressure 134/98 H 142/95 H Pulse Oximetry 96 100 Oxygen Delivery 09/21/24 08:00 09/21/24 08:00 Temperature Pulse Rate 85 85 Respiratory Rate 19 Blood Pressure Pulse Oximetry 100 Oxygen Delivery Room Air Intake/Output Intake/Output: Intake & Output 09/18/24 09/19/24 09/20/24 09/21/24 23:59 23:59 23:59 23:59 Intake Total 5334.8 1558.5 Output Total 2100 1775 Balance 3234.8 -216.5 Meds/Results Medications: Active Medications Generic Name Dose Route Start Last Admin Trade Name Freq PRN Reason Stop Dose Admin Acetaminophen 650 mg 09/19/24 22:52 09/21/24 06:07 Acetaminophen 325 Mg Tablet PO 650 mg Q4H PRN Administration Mild Pain (1-3) or Fever Al Hydrox/Mg Hydrox/Simethicone 30 ml 09/19/24 22:52 Mag Hydrox/Al Hydrox/Simeth 30 Ml Udc PO QID PRN Dyspepsia Dextrose 12.5 gm 09/19/24 22:47 Dextrose 50% 25 Gm/50 Ml Syringe IV PUSH PRN PRN Hypoglycemia Protocol Enoxaparin Sodium 40 mg 09/20/24 09:00 09/21/24 08:03 Enoxaparin 40 Mg/0.4 Ml Syringe SUB-Q 40 mg DAILY SMITH Administration Glucagon 1 mg 09/19/24 22:47 Glucagon For Inj 1 Mg Vial IM PRN PRN Hypoglycemia Protocol Glucose 15 gm 09/19/24 22:47 Glucose Oral Gel 15 Gm Of Glucse In 37.5 Gm Tube PO PRN PRN Hypoglycemia Protocol Dextrose 1,000 mls @ 100 mls/hr 09/19/24 22:47 Dextrose 5% 1,000 Ml IVPB PRN PRN Hypoglycemia Protocol Potassium Phosphate 40 mmol/ 263.3333 mls @ 43.889 mls/hr 09/21/24 05:00 09/21/24 05:17 Sodium Chloride IVPB 09/21/24 10:59 43.89 mls/hr ONCE ONE Administration Insulin Aspart 4 - 8 units 09/21/24 08:00 09/21/24 07:58 Insulin Aspart (*Bkc) 100 Units/Ml SUB-Q Not Given TIDWM [facility] Protocol Insulin Aspart 2 - 4 units 09/21/24 21:00 Insulin Aspart (*Bkc) 100 Units/Ml SUB-Q HS [facility] Protocol Insulin Glargine 60 units 09/21/24 05:00 09/21/24 05:17 Insulin Glargine (*Bkc) 100 Units/Ml SUB-Q 60 units Q24H SMITH Administration Ketorolac Tromethamine 10 mg 09/21/24 00:00 09/21/24 08:01 Ketorolac 10 Mg Tablet PO 10 mg QID PRN Administration Pain Rated 4-10 Ondansetron HCl 4 mg 09/19/24 22:52 Ondansetron Inj 4 Mg/2 Ml Vial IV PUSH Q6H PRN Nausea And Vomiting Oseltamivir Phosphate 75 mg 09/20/24 00:30 09/21/24 08:01 Oseltamivir Phosphate 75 Mg Capsule PO 09/25/24 00:29 75 mg Q12HR SMITH Administration Labs Labs: Laboratory Results - last 24 hr 09/20/24 09/20/24 09/20/24 10:56 11:42 12:22 WBC RBC Hgb Hct MCV MCH MCHC RDW Plt Count MPV Immature Gran % (Auto) Neut % (Auto) Lymph % (Auto) [place] % (Auto) Eos % (Auto) Baso % (Auto) Lymph # (Auto) [place] # (Auto) Eos # (Auto) Baso # (Auto) Abs Immat Gran (auto) Absolute Neuts (auto) Absolute Nucleated RBC Nucleated RBC % Sodium 133 L Potassium 3.5 Chloride 105 Carbon Dioxide 16 L Anion Gap 12 BUN 8 L Creatinine 0.49 L Estim Creat Clear Calc 220 Estimated GFR > 60 Glucose 210 H POC Capillary Glucose 212 H 211 H Calcium 8.0 L Phosphorus Magnesium Total Bilirubin AST ALT Alkaline Phosphatase Total Protein Albumin 09/20/24 09/20/24 09/20/24 13:10 14:02 15:00 WBC RBC Hgb Hct MCV MCH MCHC RDW Plt Count MPV Immature Gran % (Auto) Neut % (Auto) Lymph % (Auto) [place] % (Auto) Eos % (Auto) Baso % (Auto) Lymph # (Auto) [place] # (Auto) Eos # (Auto) Baso # (Auto) Abs Immat Gran (auto) Absolute Neuts (auto) Absolute Nucleated RBC Nucleated RBC % Sodium Potassium Chloride Carbon Dioxide Anion Gap BUN Creatinine Estim Creat Clear Calc Estimated GFR Glucose POC Capillary Glucose 224 H 235 H 226 H Calcium Phosphorus Magnesium Total Bilirubin AST ALT Alkaline Phosphatase Total Protein Albumin 09/20/24 09/20/24 09/20/24 15:53 16:10 17:22 WBC RBC Hgb Hct MCV MCH MCHC RDW Plt Count MPV Immature Gran % (Auto) Neut % (Auto) Lymph % (Auto) [place] % (Auto) Eos % (Auto) Baso % (Auto) Lymph # (Auto) [place] # (Auto) Eos # (Auto) Baso # (Auto) Abs Immat Gran (auto) Absolute Neuts (auto) Absolute Nucleated RBC Nucleated RBC % Sodium 133 L Potassium 3.4 Chloride 105 Carbon Dioxide 17 L Anion Gap 11 BUN 6 L Creatinine 0.52 L Estim Creat Clear Calc 209 Estimated GFR > 60 Glucose 235 H POC Capillary Glucose 237 H 237 H Calcium 8.1 L Phosphorus Magnesium Total Bilirubin AST ALT Alkaline Phosphatase Total Protein Albumin 09/20/24 09/20/24 09/20/24 18:27 20:00 20:05 WBC RBC Hgb Hct MCV MCH MCHC RDW Plt Count MPV Immature Gran % (Auto) Neut % (Auto) Lymph % (Auto) [place] % (Auto) Eos % (Auto) Baso % (Auto) Lymph # (Auto) [place] # (Auto) Eos # (Auto) Baso # (Auto) Abs Immat Gran (auto) Absolute Neuts (auto) Absolute Nucleated RBC Nucleated RBC % Sodium 134 L Potassium 3.5 Chloride 105 Carbon Dioxide 17 L Anion Gap 12 BUN 5 L Creatinine 0.50 L Estim Creat Clear Calc 217 Estimated GFR > 60 Glucose 221 H POC Capillary Glucose 253 H 228 H Calcium 8.2 L Phosphorus Magnesium Total Bilirubin AST ALT Alkaline Phosphatase Total Protein Albumin 09/20/24 09/20/24 09/20/24 21:06 22:09 23:09 WBC RBC Hgb Hct MCV MCH MCHC RDW Plt Count MPV Immature Gran % (Auto) Neut % (Auto) Lymph % (Auto) [place] % (Auto) Eos % (Auto) Baso % (Auto) Lymph # (Auto) [place] # (Auto) Eos # (Auto) Baso # (Auto) Abs Immat Gran (auto) Absolute Neuts (auto) Absolute Nucleated RBC Nucleated RBC % Sodium Potassium Chloride Carbon Dioxide Anion Gap BUN Creatinine Estim Creat Clear Calc Estimated GFR Glucose POC Capillary Glucose 192 H 193 H 227 H Calcium Phosphorus Magnesium Total Bilirubin AST ALT Alkaline Phosphatase Total Protein Albumin 09/21/24 09/21/24 09/21/24 00:07 00:34 01:00 WBC RBC Hgb Hct MCV MCH MCHC RDW Plt Count MPV Immature Gran % (Auto) Neut % (Auto) Lymph % (Auto) [place] % (Auto) Eos % (Auto) Baso % (Auto) Lymph # (Auto) [place] # (Auto) Eos # (Auto) Baso # (Auto) Abs Immat Gran (auto) Absolute Neuts (auto) Absolute Nucleated RBC Nucleated RBC % Sodium 134 L Potassium 3.4 Chloride 105 Carbon Dioxide 17 L Anion Gap 12 BUN 3 L Creatinine 0.41 L Estim Creat Clear Calc 258 Estimated GFR > 60 Glucose 237 H POC Capillary Glucose 235 H 224 H Calcium 8.1 L Phosphorus Magnesium Total Bilirubin AST ALT Alkaline Phosphatase Total Protein Albumin 09/21/24 09/21/24 09/21/24 02:10 03:06 04:11 WBC RBC Hgb Hct MCV MCH MCHC RDW Plt Count MPV Immature Gran % (Auto) Neut % (Auto) Lymph % (Auto) [place] % (Auto) Eos % (Auto) Baso % (Auto) Lymph # (Auto) [place] # (Auto) Eos # (Auto) Baso # (Auto) Abs Immat Gran (auto) Absolute Neuts (auto) Absolute Nucleated RBC Nucleated RBC % Sodium Potassium Chloride Carbon Dioxide Anion Gap BUN Creatinine Estim Creat Clear Calc Estimated GFR Glucose POC Capillary Glucose 257 H 246 H 207 H Calcium Phosphorus Magnesium Total Bilirubin AST ALT Alkaline Phosphatase Total Protein Albumin 09/21/24 09/21/24 09/21/24 04:17 05:15 06:03 WBC 3.9 L RBC 4.42 L Hgb 13.6 L Hct 38.1 L MCV 86.2 MCH 30.8 MCHC 35.7 RDW 11.7 Plt Count 144 L MPV 9.5 Immature Gran % (Auto) 0.3 Neut % (Auto) 43.2 L Lymph % (Auto) 44.4 H [place] % (Auto) 12.1 H Eos % (Auto) 0.0 Baso % (Auto) 0.0 L Lymph # (Auto) 1.73 [place] # (Auto) 0.5 Eos # (Auto) 0.0 Baso # (Auto) 0.0 Abs Immat Gran (auto) 0.01 Absolute Neuts (auto) 1.7 Absolute Nucleated RBC 0.000 Nucleated RBC % 0.0 Sodium 137 Potassium 3.1 L Chloride 106 Carbon Dioxide 22 Anion Gap 9 BUN 3 L Creatinine 0.46 L Estim Creat Clear Calc 233 Estimated GFR > 60 Glucose 208 H POC Capillary Glucose 225 H 202 H Calcium 8.2 L Phosphorus 1.4 L Magnesium 1.7 Total Bilirubin 0.4 AST 20 ALT 16 Alkaline Phosphatase 72 Total Protein 5.0 L Albumin 2.9 L 09/21/24 07:52 WBC RBC Hgb Hct MCV MCH MCHC RDW Plt Count MPV Immature Gran % (Auto) Neut % (Auto) Lymph % (Auto) [place] % (Auto) Eos % (Auto) Baso % (Auto) Lymph # (Auto) [place] # (Auto) Eos # (Auto) Baso # (Auto) Abs Immat Gran (auto) Absolute Neuts (auto) Absolute Nucleated RBC Nucleated RBC % Sodium Potassium Chloride Carbon Dioxide Anion Gap BUN Creatinine Estim Creat Clear Calc Estimated GFR Glucose POC Capillary Glucose 153 H Calcium Phosphorus Magnesium Total Bilirubin AST ALT Alkaline Phosphatase Total Protein Albumin Quality VTE Prophylaxis VTE prophylaxis: pharmacologic ordered
--- NOTE | 2024-09-21 11:05 | PC.NURSE ---
Patient offered bed bath and change of linen's, declined offer at this time.
--- NOTE | 2024-09-21 11:48 | P.PNIM_ITS ---
Progress Note: A&P Assessment and Plan (1) DKA, type 1, not at goal: Code(s): E10.10 - Type 1 diabetes mellitus with ketoacidosis without coma Status: Acute Assessment and Plan: Patient presented with nausea, vomiting, unable to keep solids or liquids down. He was not taking his Lantus on lispro at home -presented thus ED at [place] and was found to have elevated a blood sugars, anion gap metabolic acidosis with low HC03. -patient was diagnosed with DKA, given 3 L IV fluid bolus in the ER and started on insulin infusion per DKA protocol -upon arrival to the ICU overnight patient was given additional IV fluid bolus -09/22: patient has been transition to long-acting insulin and sliding scale insulin -continue diabetic diet -dietitian and color artist to evaluate the patient on Friday 09/22 -hemoglobin A1c this admission is 12.6 (it was 12.7 in February 2024) (2) Influenza A: Code(s): J10.1 - Influenza due to other identified influenza virus with other respiratory manifestations Status: Acute Assessment and Plan: Patient also presented with rhinorrhea, nasal congestion, sore throat pain -influenza A was positive in the ER -COVID and RSV were negative -continue Tamiflu (3) Dehydration: Code(s): E86.0 - Dehydration Status: Acute Assessment and Plan: RESOLVED compliance Unable to keep solids and liquids down x4 days -currently adequately rehydrated -continue to monitor (4) Noncompliance with medication regimen: Code(s): Z91.148 - Patient's other noncompliance with medication regimen for other reason Status: Acute Assessment and Plan: Patient has switched his pain shortness for did not have insulin for a while -also his hemoglobin A1c remains elevated -have counseled patient with compliance of insulin Subjective Date/time seen: 09/21/24 11:48 Interval history: Diagnosed Type 1 DM at the age of 16. Reports his first hospitalization for DKA. Believes illness from influenza triggered triggered him. Review of Systems Review of Systems: 12 systems were reviewed with pertinent positives and negatives per HPI. Except as documented in the HPI, all other systems were reviewed and are negative. All systems reviewed & are unremarkable except as noted in HPI and below Exam Narrative: General: Pleasant young gentleman in no acute distress HEENT:? Moist oral mucosa, pupils equal and reactive, sclera is clear, no oral or pharyngeal erythema Neck:? Supple Respiratory:? Clear to auscultation bilaterally, no wheezing Cardiac:? S1-S2 normal, regular rate and rule Abdomen:? Soft, nontender, nondistended, normoactive bowel sounds Extremities:? No edema, palpable pedal pulses Neuro:? Patient is awake, alert, oriented, nonfocal, able to answer questions appropriately and follows simple commands Skin:? Tattoos noted, no other skin lesion Psych:? Normal mentation after Const: Other: No acute distress, well-developed well-nourished HENMT: Other: Mucous membranes are dry, no oral pharyngeal erythema Eyes: Other: Pupils are equal and reactive, no scleral icterus, no conjunctival pallor Neck: Other: No lymphadenopathy, trachea midline Resp: Other: Clear to auscultation bilaterally, no increased work of breathing Cardio: Other: Regular rate, regular rhythm, 2+ bilateral radial pedal pulses, no murmur GI: Other: Soft, nontender, nondistended, positive bowel sounds Skin: Other: No jaundice, no pallor Neuro: Other: Alert oriented, speech is clear, no facial asymmetry, no localizing neurologic deficits noted during the course of conversation Extrem: Other: No foot wounds, no clubbing, no cyanosis, no edema Psych: Other: Appropriate mood, flat affect, cooperative Objective Data Vital Signs Vital Signs: Vital Signs - 24 hr 09/20/24 12:00 09/20/24 12:00 09/20/24 14:00 Temperature 98 F Pulse Rate 84 85 81 Respiratory Rate 19 18 Blood Pressure 111/64 136/89 Pulse Oximetry 97 100 Oxygen Delivery 09/20/24 14:00 09/20/24 16:00 09/20/24 16:00 Temperature 98.2 F Pulse Rate 84 94 85 Respiratory Rate 18 Blood Pressure 143/85 H Pulse Oximetry 100 Oxygen Delivery 09/20/24 18:00 09/20/24 18:00 09/20/24 20:00 Temperature 99.1 F Pulse Rate 91 91 82 Respiratory Rate 20 17 Blood Pressure 126/79 135/86 Pulse Oximetry 96 95 Oxygen Delivery 09/20/24 20:00 09/20/24 20:00 09/20/24 22:00 Temperature Pulse Rate 81 83 Respiratory Rate 20 Blood Pressure 128/81 Pulse Oximetry 96 Oxygen Delivery Room Air 09/20/24 22:00 09/21/24 00:00 09/21/24 00:00 Temperature 98.4 F Pulse Rate 83 76 Respiratory Rate 16 Blood Pressure 132/84 Pulse Oximetry 95 Oxygen Delivery Room Air 09/21/24 00:00 09/21/24 02:00 09/21/24 02:00 Temperature Pulse Rate 73 73 73 Respiratory Rate 18 Blood Pressure 111/76 Pulse Oximetry 96 Oxygen Delivery 09/21/24 04:00 09/21/24 04:00 09/21/24 04:00 Temperature 97.1 F L Pulse Rate 69 63 Respiratory Rate 17 Blood Pressure 135/89 Pulse Oximetry 96 Oxygen Delivery Room Air 09/21/24 06:00 09/21/24 06:00 09/21/24 08:00 Temperature 98.4 F Pulse Rate 74 74 84 Respiratory Rate 20 19 Blood Pressure 134/98 H 142/95 H Pulse Oximetry 96 100 Oxygen Delivery 09/21/24 08:00 09/21/24 08:00 Temperature Pulse Rate 85 85 Respiratory Rate 19 Blood Pressure Pulse Oximetry 100 Oxygen Delivery Room Air Intake/Output Intake/Output: Intake & Output 09/18/24 09/19/24 09/20/24 09/21/24 23:59 23:59 23:59 23:59 Intake Total 5334.8 1558.5 Output Total 2100 2500 Balance 3234.8 -941.5 Meds/Results Medications: Active Medications Generic Name Dose Route Start Last Admin Trade Name Freq PRN Reason Stop Dose Admin Acetaminophen 650 mg 09/19/24 22:52 09/21/24 06:07 Acetaminophen 325 Mg Tablet PO 650 mg Q4H PRN Administration Mild Pain (1-3) or Fever Al Hydrox/Mg Hydrox/Simethicone 30 ml 09/19/24 22:52 Mag Hydrox/Al Hydrox/Simeth 30 Ml Udc PO QID PRN Dyspepsia Dextrose 12.5 gm 09/19/24 22:47 Dextrose 50% 25 Gm/50 Ml Syringe IV PUSH PRN PRN Hypoglycemia Protocol Enoxaparin Sodium 40 mg 09/20/24 09:00 09/21/24 08:03 Enoxaparin 40 Mg/0.4 Ml Syringe SUB-Q 40 mg DAILY SMITH Administration Glucagon 1 mg 09/19/24 22:47 Glucagon For Inj 1 Mg Vial IM PRN PRN Hypoglycemia Protocol Glucose 15 gm 09/19/24 22:47 Glucose Oral Gel 15 Gm Of Glucse In 37.5 Gm Tube PO PRN PRN Hypoglycemia Protocol Dextrose 1,000 mls @ 100 mls/hr 09/19/24 22:47 Dextrose 5% 1,000 Ml IVPB PRN PRN Hypoglycemia Protocol Insulin Aspart 4 - 8 units 09/21/24 08:00 09/21/24 07:58 Insulin Aspart (*Bkc) 100 Units/Ml SUB-Q Not Given TID[facility] Protocol Insulin Aspart 2 - 4 units 09/21/24 21:00 Insulin Aspart (*Bkc) 100 Units/Ml SUB-Q HS [facility] Protocol Insulin Glargine 60 units 09/21/24 05:00 09/21/24 05:17 Insulin Glargine (*Bkc) 100 Units/Ml SUB-Q 60 units Q24H SMITH Administration Ketorolac Tromethamine 10 mg 09/21/24 00:00 09/21/24 08:01 Ketorolac 10 Mg Tablet PO 10 mg QID PRN Administration Pain Rated 4-10 Ondansetron HCl 4 mg 09/19/24 22:52 Ondansetron Inj 4 Mg/2 Ml Vial IV PUSH Q6H PRN Nausea And Vomiting Oseltamivir Phosphate 75 mg 09/20/24 00:30 09/21/24 08:01 Oseltamivir Phosphate 75 Mg Capsule PO 09/25/24 00:29 75 mg Q12HR SMITH Administration Labs Labs: Laboratory Results - last 24 hr 09/20/24 09/20/24 09/20/24 11:42 12:22 13:10 WBC RBC Hgb Hct MCV MCH MCHC RDW Plt Count MPV Immature Gran % (Auto) Neut % (Auto) Lymph % (Auto) [place] % (Auto) Eos % (Auto) Baso % (Auto) Lymph # (Auto) [place] # (Auto) Eos # (Auto) Baso # (Auto) Abs Immat Gran (auto) Absolute Neuts (auto) Absolute Nucleated RBC Nucleated RBC % Sodium 133 L Potassium 3.5 Chloride 105 Carbon Dioxide 16 L Anion Gap 12 BUN 8 L Creatinine 0.49 L Estim Creat Clear Calc 220 Estimated GFR > 60 Glucose 210 H POC Capillary Glucose 211 H 224 H Calcium 8.0 L Phosphorus Magnesium Total Bilirubin AST ALT Alkaline Phosphatase Total Protein Albumin 09/20/24 09/20/24 09/20/24 14:02 15:00 15:53 WBC RBC Hgb Hct MCV MCH MCHC RDW Plt Count MPV Immature Gran % (Auto) Neut % (Auto) Lymph % (Auto) [place] % (Auto) Eos % (Auto) Baso % (Auto) Lymph # (Auto) [place] # (Auto) Eos # (Auto) Baso # (Auto) Abs Immat Gran (auto) Absolute Neuts (auto) Absolute Nucleated RBC Nucleated RBC % Sodium Potassium Chloride Carbon Dioxide Anion Gap BUN Creatinine Estim Creat Clear Calc Estimated GFR Glucose POC Capillary Glucose 235 H 226 H 237 H Calcium Phosphorus Magnesium Total Bilirubin AST ALT Alkaline Phosphatase Total Protein Albumin 09/20/24 09/20/24 09/20/24 16:10 17:22 18:27 WBC RBC Hgb Hct MCV MCH MCHC RDW Plt Count MPV Immature Gran % (Auto) Neut % (Auto) Lymph % (Auto) [place] % (Auto) Eos % (Auto) Baso % (Auto) Lymph # (Auto) [place] # (Auto) Eos # (Auto) Baso # (Auto) Abs Immat Gran (auto) Absolute Neuts (auto) Absolute Nucleated RBC Nucleated RBC % Sodium 133 L Potassium 3.4 Chloride 105 Carbon Dioxide 17 L Anion Gap 11 BUN 6 L Creatinine 0.52 L Estim Creat Clear Calc 209 Estimated GFR > 60 Glucose 235 H POC Capillary Glucose 237 H 253 H Calcium 8.1 L Phosphorus Magnesium Total Bilirubin AST ALT Alkaline Phosphatase Total Protein Albumin 09/20/24 09/20/24 09/20/24 20:00 20:05 21:06 WBC RBC Hgb Hct MCV MCH MCHC RDW Plt Count MPV Immature Gran % (Auto) Neut % (Auto) Lymph % (Auto) [place] % (Auto) Eos % (Auto) Baso % (Auto) Lymph # (Auto) [place] # (Auto) Eos # (Auto) Baso # (Auto) Abs Immat Gran (auto) Absolute Neuts (auto) Absolute Nucleated RBC Nucleated RBC % Sodium 134 L Potassium 3.5 Chloride 105 Carbon Dioxide 17 L Anion Gap 12 BUN 5 L Creatinine 0.50 L Estim Creat Clear Calc 217 Estimated GFR > 60 Glucose 221 H POC Capillary Glucose 228 H 192 H Calcium 8.2 L Phosphorus Magnesium Total Bilirubin AST ALT Alkaline Phosphatase Total Protein Albumin 09/20/24 09/20/24 09/21/24 22:09 23:09 00:07 WBC RBC Hgb Hct MCV MCH MCHC RDW Plt Count MPV Immature Gran % (Auto) Neut % (Auto) Lymph % (Auto) [place] % (Auto) Eos % (Auto) Baso % (Auto) Lymph # (Auto) [place] # (Auto) Eos # (Auto) Baso # (Auto) Abs Immat Gran (auto) Absolute Neuts (auto) Absolute Nucleated RBC Nucleated RBC % Sodium Potassium Chloride Carbon Dioxide Anion Gap BUN Creatinine Estim Creat Clear Calc Estimated GFR Glucose POC Capillary Glucose 193 H 227 H 235 H Calcium Phosphorus Magnesium Total Bilirubin AST ALT Alkaline Phosphatase Total Protein Albumin 09/21/24 09/21/24 09/21/24 00:34 01:00 02:10 WBC RBC Hgb Hct MCV MCH MCHC RDW Plt Count MPV Immature Gran % (Auto) Neut % (Auto) Lymph % (Auto) [place] % (Auto) Eos % (Auto) Baso % (Auto) Lymph # (Auto) [place] # (Auto) Eos # (Auto) Baso # (Auto) Abs Immat Gran (auto) Absolute Neuts (auto) Absolute Nucleated RBC Nucleated RBC % Sodium 134 L Potassium 3.4 Chloride 105 Carbon Dioxide 17 L Anion Gap 12 BUN 3 L Creatinine 0.41 L Estim Creat Clear Calc 258 Estimated GFR > 60 Glucose 237 H POC Capillary Glucose 224 H 257 H Calcium 8.1 L Phosphorus Magnesium Total Bilirubin AST ALT Alkaline Phosphatase Total Protein Albumin 09/21/24 09/21/24 09/21/24 03:06 04:11 04:17 WBC 3.9 L RBC 4.42 L Hgb 13.6 L Hct 38.1 L MCV 86.2 MCH 30.8 MCHC 35.7 RDW 11.7 Plt Count 144 L MPV 9.5 Immature Gran % (Auto) 0.3 Neut % (Auto) 43.2 L Lymph % (Auto) 44.4 H [place] % (Auto) 12.1 H Eos % (Auto) 0.0 Baso % (Auto) 0.0 L Lymph # (Auto) 1.73 [place] # (Auto) 0.5 Eos # (Auto) 0.0 Baso # (Auto) 0.0 Abs Immat Gran (auto) 0.01 Absolute Neuts (auto) 1.7 Absolute Nucleated RBC 0.000 Nucleated RBC % 0.0 Sodium 137 Potassium 3.1 L Chloride 106 Carbon Dioxide 22 Anion Gap 9 BUN 3 L Creatinine 0.46 L Estim Creat Clear Calc 233 Estimated GFR > 60 Glucose 208 H POC Capillary Glucose 246 H 207 H Calcium 8.2 L Phosphorus 1.4 L Magnesium 1.7 Total Bilirubin 0.4 AST 20 ALT 16 Alkaline Phosphatase 72 Total Protein 5.0 L Albumin 2.9 L 09/21/24 09/21/24 09/21/24 05:15 06:03 07:52 WBC RBC Hgb Hct MCV MCH MCHC RDW Plt Count MPV Immature Gran % (Auto) Neut % (Auto) Lymph % (Auto) [place] % (Auto) Eos % (Auto) Baso % (Auto) Lymph # (Auto) [place] # (Auto) Eos # (Auto) Baso # (Auto) Abs Immat Gran (auto) Absolute Neuts (auto) Absolute Nucleated RBC Nucleated RBC % Sodium Potassium Chloride Carbon Dioxide Anion Gap BUN Creatinine Estim Creat Clear Calc Estimated GFR Glucose POC Capillary Glucose 225 H 202 H 153 H Calcium Phosphorus Magnesium Total Bilirubin AST ALT Alkaline Phosphatase Total Protein Albumin Hospitalist MIPS Advance Care Plan I have confirmed that the patient's Advanced Care Plan is present, code status is documented, or surrogate decision maker is listed in patient medical record.: Yes Medication Reconciliation I have utilized all available resources to obtain, update and review the cornel ents current medications (includes all prescriptions, OTC, herbals, cannabis, and nutritional supplements).: Yes
[2024-09-21 11:50] LABS: Glucose Point of Care 210 mg/dl (65-105)
[2024-09-21] MEDS: INSULIN ASPART (*BKC) 100 UNITS/ML SUB-Q ×2 (11:51→21:26)
[2024-09-21 15:00] LABS: Alanine Aminotransferase 20 U/L (6-50); Albumin Level 3.6 g/dL (3.5-5.1); Alkaline Phosphatase 87 U/L (38-126); Anion Gap 10 mmol/L (4-12); Aspartate Amino Transferase 26 U/L (17-59); Bilirubin,Total 0.5 mg/dL (0.2-1.3); Blood Urea Nitrogen 3 mg/dL (9-20); Calcium 8.7 mg/dL (8.4-10.2); Carbon Dioxide 24 mmol/L (22-30); Chloride 104 mmol/L (98-107); Estimated CRCL calculation 282 ml/min; Estimated Glomerular Filt Rate > 60; Glucose 216 mg/dL (65-110); Magnesium 1.6 mg/dL (1.6-2.3); Potassium 3.4 mmol/L (3.4-5.0); Sodium 138 mmol/L (137-145)
[2024-09-21 17:49] LABS: Glucose Point of Care 189 mg/dl (65-105)
[2024-09-21 20:37] LABS: Glucose Point of Care 275 mg/dl (65-105)
[2024-09-21 21:33] LABS: Glucose Point of Care 266 mg/dl (65-105)
[2024-09-22] MEDS: INSULIN GLARGINE (*BKC) 100 UNITS/ML 60 UNITS SUB-Q (05:59)
[2024-09-22 06:02] VITALS: BP 144/96; PULSE 77; RESP 20; TEMP 36.5; O2SAT 100
[2024-09-22 06:44] LABS: Basophils Percent Auto 0.3 % (0.2-1.2); Eosinophils Percent Auto 0.3 % (0-4.4); Hematocrit 41.9 % (42.0-52.0); Hemoglobin 14.6 g/dL (14.0-18.0); Immature Granulocyte Absolute 0.01 K/mm3 (0.00-0.031); Immature Granulocyte Percent A 0.3 % (0-0.5); Lymphocytes Absolute Auto 1.62 K/mm3 (0.9-3.2); Lymphocytes Percent Auto 48.9 % (18.3-44.2); Mean Corpuscular HGB Conc 34.8 g/dl (32-36); Mean Corpuscular Hemoglobin 30.5 pg (26-34); Mean Corpuscular Volume 87.5 fl (80-100); Mean Platelet Volume 9.9 fl (7.4-10.4); Monocytes Absolute Auto 0.4 K/mm3 (0.1-0.6); Neutrophils Absolute Auto 1.2 K/mm3 (1.3-6.7); Neutrophils Percent Auto 37.2 % (45.5-73.1); Platelet Count Result 165 k/mm3 (150-375); Red Blood Count 4.79 M/mm3 (4.6-6.20); Red Cell Distribution Width 11.8 % (11.5-14.5); White Blood Count 3.3 K/mm3 (4.5-10.0)
[2024-09-22 06:58] LABS: Alanine Aminotransferase 19 U/L (6-50); Albumin Level 3.7 g/dL (3.5-5.1); Alkaline Phosphatase 79 U/L (38-126); Anion Gap 7 mmol/L (4-12); Aspartate Amino Transferase 24 U/L (17-59); Bilirubin,Total 0.6 mg/dL (0.2-1.3); Blood Urea Nitrogen 4 mg/dL (9-20); Calcium 9.3 mg/dL (8.4-10.2); Carbon Dioxide 33 mmol/L (22-30); Chloride 104 mmol/L (98-107); Estimated CRCL calculation 206 ml/min; Estimated Glomerular Filt Rate > 60; Glucose 140 mg/dL (65-110); Magnesium 1.8 mg/dL (1.6-2.3); Phosphorus 3.5 mg/dL (2.5-4.5); Potassium 3.3 mmol/L (3.4-5.0); Sodium 144 mmol/L (137-145)
[2024-09-22 07:00] LABS: Glucose Point of Care 148 mg/dl (65-105)
--- NOTE | 2024-09-22 07:44 | PM.DS ---
DS: Admitting Diagnosis Discharge Date 09/22/2024 Admitting Diagnosis DKA DS: Discharge Diagnosis Discharge Diagnosis (1) DKA, type 1, not at goal: Code(s): E10.10 - Type 1 diabetes mellitus with ketoacidosis without coma Status: Acute Assessment and Plan: Resolved Patient presented with nausea, vomiting, unable to keep solids or liquids down. He was not taking his Lantus on lispro at home -presented thus ED at [place] and was found to have elevated a blood sugars, anion gap metabolic acidosis with low HC03. -patient was diagnosed with DKA, given 3 L IV fluid bolus in the ER and started on insulin infusion per DKA protocol -upon arrival to the ICU overnight patient was given additional IV fluid bolus -09/22: patient has been transition to long-acting insulin and sliding scale insulin -continue diabetic diet -dietitian and consumer educator to evaluate the patient on Friday 09/22 -Continue Lantus 60 U QHS and Insulin Lispro 10U AC -hemoglobin A1c this admission is 12.6 (it was 12.7 in February 2024) (2) Influenza A: Code(s): J10.1 - Influenza due to other identified influenza virus with other respiratory manifestations Status: Acute Assessment and Plan: Patient also presented with rhinorrhea, nasal congestion, sore throat pain -influenza A was positive in the ER -COVID and RSV were negative -continue Tamiflu until 09/25 (3) Dehydration: Code(s): E86.0 - Dehydration Status: Acute Assessment and Plan: RESOLVED compliance Unable to keep solids and liquids down x4 days -currently adequately rehydrated -continue to monitor (4) Noncompliance with medication regimen: Code(s): Z91.148 - Patient's other noncompliance with medication regimen for other reason Status: Acute Assessment and Plan: Patient has switched his pain shortness for did not have insulin for a while -also his hemoglobin A1c remains elevated -have counseled patient with compliance of insulin DS: Summary Hospital Course Hospital Course: 24-year-old male with past medical history of type 1 diabetes mellitus who presented to the ER at [place] due to nausea vomiting since Sunday (4 days). He reports that he started having upper respiratory symptoms with rhinorrhea, nasal congestion and cough 4 days ago. He did not feel well so he did not take his Lantus or lispro insulin. The next day he then began having onset of nausea vomiting. Is nausea vomiting was persistent and consisted of anything he ate or drink. He denies any associated abdominal pain. He has had some mild sore throat. Denies any known ill contacts. The patient's glucoses on arrival to [place] were 386. Labs demonstrated pseudo hyponatremia with anion gap acidosis with serum bicarb of 10 an anion gap of 28. VBG demonstrated pH of 7.16 with pCO2 of 21 and urine demonstrated elevated specific gravity, 3+ ketones and 2+ glucose. His influenza a PCR was also found to be positive. He did not receive an influenza vaccine. The patient received 2 L of normal saline and was started on insulin drip. I was contacted for transfer. At that time I requested patient receive 3rd Liter of IV fluid hydration and 2 g magnesium sulfate rider. Patient gives variable reports of his glycemic control at home. He told me that he had never been admitted for DKA but told nursing staff that he has been admitted for DKA before. He had reported to nursing staff that he did not having difficulty obtaining his medications or affording his medications but then inform me that the reason he had not been taking his medications and why his A1c was higher than usual was because he had a switch in insurance couple of months ago. He reports that his A1c was 8 3 months ago but we cannot confirm this. He denies any diarrhea. He does report polydipsia. But denies any increased urinary frequency urgency or polyphagia. He denies known history of retinopathy or neuropathy. During the hospitalization patient was treated for DKA. Currently patient is doing well. No episodes of nausea vomiting or abdominal pain. Patient will be discharged with the insulin Lantus 60 units q.h.s. and insulin lispro 10 units a.c.. Patient needs to complete Tamiflu until 0 09/25. Patient needs to follow-up with the physical science aide and PCP within 1 week upon discharge. Status at Discharge Cognitive/behavioral status at discharge: Stable Time Spent with Patient Time attestation: Total time spent providing and/or coordinating discharge services: 45 minutes Exam Narrative: General: Pleasant young gentleman in no acute distress HEENT:? Moist oral mucosa, pupils equal and reactive, sclera is clear, no oral or pharyngeal erythema Neck:? Supple Respiratory:? Clear to auscultation bilaterally, no wheezing Cardiac:? S1-S2 normal, regular rate and rule Abdomen:? Soft, nontender, nondistended, normoactive bowel sounds Extremities:? No edema, palpable pedal pulses Neuro:? Patient is awake, alert, oriented, nonfocal, able to answer questions appropriately and follows simple commands Skin:? Tattoos noted, no other skin lesion Psych:? Normal mentation after Const: Other: No acute distress, well-developed well-nourished HENMT: Other: Mucous membranes are dry, no oral pharyngeal erythema Eyes: Other: Pupils are equal and reactive, no scleral icterus, no conjunctival pallor Neck: Other: No lymphadenopathy, trachea midline Resp: Other: Clear to auscultation bilaterally, no increased work of breathing Cardio: Other: Regular rate, regular rhythm, 2+ bilateral radial pedal pulses, no murmur GI: Other: Soft, nontender, nondistended, positive bowel sounds Skin: Other: No jaundice, no pallor Neuro: Other: Alert oriented, speech is clear, no facial asymmetry, no localizing neurologic deficits noted during the course of conversation Extrem: Other: No foot wounds, no clubbing, no cyanosis, no edema Psych: Other: Appropriate mood, flat affect, cooperative DS: Data Data Completed and Pending Labs on day of discharge: Labs from last 24 hours 09/22/24 09/22/24 09/21/24 06:00 05:58 21:25 WBC 3.3 L RBC 4.79 Hgb 14.6 Hct 41.9 L MCV 87.5 MCH 30.5 MCHC 34.8 RDW 11.8 Plt Count 165 MPV 9.9 Immature Gran % (Auto) 0.3 Neut % (Auto) 37.2 L Lymph % (Auto) 48.9 H [place] % (Auto) 13.0 H Eos % (Auto) 0.3 Baso % (Auto) 0.3 Lymph # (Auto) 1.62 [place] # (Auto) 0.4 Eos # (Auto) 0.0 Baso # (Auto) 0.0 Abs Immat Gran (auto) 0.01 Absolute Neuts (auto) 1.2 L Absolute Nucleated RBC 0.000 Nucleated RBC % 0.0 Sodium 144 Potassium 3.3 L Chloride 104 Carbon Dioxide 33 H Anion Gap 7 BUN 4 L Creatinine 0.53 L Estim Creat Clear Calc 206 Estimated GFR > 60 Glucose 140 H POC Capillary Glucose 148 H 266 H Calcium 9.3 Phosphorus 3.5 Magnesium 1.8 Total Bilirubin 0.6 AST 24 ALT 19 Alkaline Phosphatase 79 Total Protein 6.0 L Albumin 3.7 09/21/24 09/21/24 09/21/24 20:06 17:15 14:41 WBC RBC Hgb Hct MCV MCH MCHC RDW Plt Count MPV Immature Gran % (Auto) Neut % (Auto) Lymph % (Auto) [place] % (Auto) Eos % (Auto) Baso % (Auto) Lymph # (Auto) [place] # (Auto) Eos # (Auto) Baso # (Auto) Abs Immat Gran (auto) Absolute Neuts (auto) Absolute Nucleated RBC Nucleated RBC % Sodium 138 Potassium 3.4 Chloride 104 Carbon Dioxide 24 Anion Gap 10 BUN 3 L Creatinine 0.37 L Estim Creat Clear Calc 282 Estimated GFR > 60 Glucose 216 H POC Capillary Glucose 275 H 189 H Calcium 8.7 Phosphorus Magnesium 1.6 Total Bilirubin 0.5 AST 26 ALT 20 Alkaline Phosphatase 87 Total Protein 6.0 L Albumin 3.6 09/21/24 09/21/24 11:47 07:52 WBC RBC Hgb Hct MCV MCH MCHC RDW Plt Count MPV Immature Gran % (Auto) Neut % (Auto) Lymph % (Auto) [place] % (Auto) Eos % (Auto) Baso % (Auto) Lymph # (Auto) [place] # (Auto) Eos # (Auto) Baso # (Auto) Abs Immat Gran (auto) Absolute Neuts (auto) Absolute Nucleated RBC Nucleated RBC % Sodium Potassium Chloride Carbon Dioxide Anion Gap BUN Creatinine Estim Creat Clear Calc Estimated GFR Glucose POC Capillary Glucose 210 H 153 H Calcium Phosphorus Magnesium Total Bilirubin AST ALT Alkaline Phosphatase Total Protein Albumin Discharge Plan Discharge Attending physician on discharge: Aidan Ronquillo Discharging Clinician: Aidan Ronquillo Anticipated Discharge Date/Time: 09/22/24 11:45 Patient Disposition: Home, Self-Care Activity: as tolerated Diet: diabetic Discharge Instructions: Patient will be discharged with the insulin Lantus 60 units q.h.s. and insulin lispro 10 units a.c.. Patient needs to complete Tamiflu 2 times a day until 09/25. Patient needs to follow-up with the physical science aide and PCP within 1 week upon discharge. Patient Instructions: Antibiotic Form, How to Stop Smoking (DC), Diabetic Ketoacidosis (DC), Basic Carbohydrate Counting (DC), Managing Diabetes During Sick Days (DC), Diabetes and Exercise (DC), EVALI (E-cigarette or Vaping-Associated Lung Injury) (DC) Patient Language: Malay Stand Alone Forms: General Discharge Information Follow-up/Referrals: Warner Acevedo MD [Primary Care Provider] - Discharge Medications: New oseltamivir [Tamiflu] 75 mg Capsule 75 mg PO Q12HR Qty: 10 0RF Continued insulin glargine [Lantus Solostar U-100 Insulin] 100 unit/mL (3 mL) insulin pen 60 unit SUBCUT QPM insulin lispro 100 unit/mL insulin pen 10 unit SUBCUT ACINSULIN Date of admission: 09/20/24 08:46 Primary Care Provider: Warner Acevedo Admitting Provider: Nika Byrd Attending physician on admission: Nika Byrd Condition: Stable
[2024-09-22 08:00] VITALS: BP 148/52; PULSE 78; RESP 18; TEMP 36.5; O2SAT 94
[2024-09-22 08:17] LABS: Glucose Point of Care 144 mg/dl (65-105)
[2024-09-22] MEDS: POTASSIUM CHLORIDE 20 MEQ ER TABLET 60 MEQ PO (08:27)
[2024-09-22 08:28] VITALS: RESP 20; O2SAT 100
[2024-09-22] MEDS: ENOXAPARIN 40 MG/0.4 ML SYRINGE SUB-Q (08:28)
[2024-09-22] MEDS: OSELTAMIVIR PHOSPHATE 75 MG CAPSULE PO (08:28)
[2024-09-22 11:05] VITALS: BMI 24.5
--- NOTE | 2024-09-26 12:50 | PCCDE ---
09/26: Spoke with patient. Has done some pp glucose checks seeing 150-215. Reports this am fasting 141. Verbalizing still open to outpatient DSMT. -- ideas discussed re: pp hyperglycemia (spaghetti and peas same meal) -- discussed value of change preprandial/pp) -- Pt states to HCP post hospital DC appt Sunday -- has OP DSMT flyer to review/discuss w/PCP for Referral (if not already processed) [facility]
== END 2024-09-22 12:10 | disposition home or self-care (01) | DRG 639 ==
LOC: ANHICU 09-20 08:49 → ANH2MED 09-22 11:45 → ANHICU 09-23 16:00
PROVIDERS: Internal Medicine; Admitting Provider Internal Medicine; PCP Emergency Medicine; Visit Provider General Practice
DX: E10.10 Type 1 diabetes mellitus with ketoacidosis without coma (principal); J10.1 Influenza due to other identified influenza virus with other respiratory manifestations; E86.0 Dehydration; E83.39 Other disorders of phosphorus metabolism; F17.290 Nicotine dependence, other tobacco product, uncomplicated; Z79.4 Long term (current) use of insulin; Z91.148 Patient's other noncompliance with medication regimen for other reason
CPT/HCPCS: 36415; 80048; 80053; 82948; 83036; 83735; 84100; 85025; 87641; 96365; 96366; 96375; A9270; G0378; J1650; J1815; J3480; J7030; J7050; J7060; J7120